=== PATIENT | female | born 1955 | race Caucasian/White ===

== ENCOUNTER 2017-05-21 14:05 | Emergency (ER) | payer OTHER ==
--- NOTE | 2017-05-21 14:32 | UC ---
Throat Pain/Nasal Deuce HPI - HPI Summary HPI Summary: 62 YEAR OLD FEMALE PRESENTS WITH COMPLAINS OF COUGH, CONGESTION, FEVER AND CHILLS X 2 WEEKS. - History of Current Complaint Stated Complaint: COUGH CONGESTION Time Seen by Provider: 05/21/17 14:31 Hx Obtained From: Patient Onset/Duration: Sudden Onset Severity: Moderate Pain Scale Used: 0-10 Numeric - 5 Cough: Nonproductive Associated Signs & Symptoms: Positive: Negative - Allergies/Home Medications Allergies/Adverse Reactions: Allergies Allergy/AdvReac Type Severity Reaction Status Date / Time Soybean Allergy Allergy Severe Anaphylatic Verified 05/21/17 14:27 Shock Iodine Allergy Unknown SEIZURES Verified 05/21/17 14:27 Codeine Allergy ITCHING Verified 05/21/17 14:27 AND VOMITING [place] Allergy Anaphylatic Verified 05/21/17 14:27 Shock Malt AdvReac Severe lock jaw Verified 05/21/17 14:27 NSAIDs AdvReac Severe CAN'T TAKE Verified 05/21/17 14:27 BECAUSE OF KIDNEYS Yeast AdvReac Severe lock jaw Verified 05/21/17 14:27 Ciprofloxacin [From Cipro] AdvReac Unknown See Comment Verified 05/21/17 14:27 black pepper AdvReac Severe sinusitis Uncoded 05/21/17 14:27 dairy AdvReac Severe sinus Uncoded 05/21/17 14:27 infections PMH/Surg Hx/FS Hx/Imm Hx Previously Healthy: Yes - Surgical History Surgical History: Yes Surgery Procedure, Year, and Place: Appendectomy, Jaw surgery 1992, Right Foot surgery 1988 - Family History Known Family History: Positive: Unknown, Hypertension - Social History Alcohol Use: None Substance Use Type: None Smoking Status (MU): Never Smoked Tobacco - Immunization History Most Recent Tetanus Shot: less then 10 yrs. Review of Systems Constitutional: Negative Skin: Negative Eyes: Negative ENT: Sore Throat, Nasal Discharge, Sinus Congestion, Sinus Pain/Tenderness Respiratory: Cough Cardiovascular: Negative Gastrointestinal: Negative Genitourinary: Negative Motor: Negative Neurovascular: Negative Musculoskeletal: Negative Neurological: Negative Psychological: Negative All Other Systems Reviewed And Are Negative: Yes Physical Exam Triage Information Reviewed: Yes Vital Signs Reviewed: Yes Eye Exam: Normal ENT: Positive: Pharyngeal erythema, Nasal congestion, Nasal drainage Dental Exam: Normal Neck exam: Normal Neck: Positive: 1 Respiratory: Positive: Wheezing Cardiovascular Exam: Normal Abdominal Exam: Normal Musculoskeletal Exam: Normal Neurological Exam: Normal Psychological Exam: Normal Skin Exam: Normal Throat Pain/Nasal Course/Dx - Differential Dx/Diagnosis Provider Diagnoses: PHARYNGITIS. ACUTE COUGH. WHEEZING Discharge - Discharge Plan Condition: Stable Disposition: HOME Prescriptions: Azithromyxin JOE (NF) [Z-Joe (Zithromax) 250 mg tabs #6] 2 tab PO .TODAY, THEN 1 DAILY #6 tab LoraTADine TAB(NF) [Claritin 10 MG TAB(NF)] 10 mg PO DAILY #30 tab Promethazine-Dm [Promethazine/Dextromethor 6.25-15 mg/5Ml] 1 syp PO Q8H PRN # 120 ml PRN Reason: Cough Patient Education Materials: Sinusitis (ED) Referrals: Loree Doll MD [Primary Care Provider] -
[2017-05-21 14:35] VITALS: BP 149/83
== END 2017-05-21 15:00 | disposition home or self-care (01) ==
LOC: UCEAST 14:05
DX: J02.9 Acute pharyngitis, unspecified (principal); R05 Cough; R06.2 Wheezing
CPT/HCPCS: 86615; 87798; 99212; G0463

== ENCOUNTER 2017-05-31 12:51 | Emergency (ER) | payer OTHER ==
--- NOTE | 2017-05-31 14:32 | UC ---
Lower Extremity/Ankle HPI - HPI Summary HPI Summary: 62 Y/O female presents with C/O of acute RLE pain that began last night. Today pain is decreased but states still has pain with ambulation. Currently being treated by orthopedics for a meniscus tear in LLE. Surgery was recommended but Ms Shha states has been "waiting it out". She also states history of back pain sciatica. No lower extremity swelling, redness or bruising. Denies numbness, back pain or loss of bowel or bladder control. She states that she takes no medications. No new injury reported. She states is concerned that she may have a "blood clot". Discussed with Ms Shah that she can be sent to ER for evaluation and ultrasound of her legs. is not willing to go to ER. Blood pressure is elevated, discussed with patient and she is to monitor and follow up with her primary care provider. All other medical history reviewed at this visit. - History of Current Complaint Stated Complaint: R KNEE Time Seen by Provider: 05/31/17 13:36 Hx Obtained From: Patient Onset/Duration: Sudden Onset, Lasting Hours Severity Initially: Moderate Severity Currently: Mild Pain Intensity: 0 Pain Scale Used: 0-10 Numeric - No pain unless weight bearing Aggravating Factor(s): Ambulation Alleviating Factor(s): Rest Able to Bear Weight: Yes - Risk Factors Gout Risk Factors: Negative DVT Risk Factors: Negative Septic Arthritis Risk Factor: Negative - Allergies/Home Medications Allergies/Adverse Reactions: Allergies Allergy/AdvReac Type Severity Reaction Status Date / Time Soybean Allergy Allergy Severe Anaphylatic Verified 05/31/17 13:46 Shock Iodine Allergy Unknown SEIZURES Verified 05/31/17 13:46 Codeine Allergy ITCHING Verified 05/31/17 13:46 AND VOMITING [place] Allergy Anaphylatic Verified 05/31/17 13:46 Shock Malt AdvReac Severe lock jaw Verified 05/31/17 13:46 NSAIDs AdvReac Severe CAN'T TAKE Verified 05/31/17 13:46 BECAUSE OF KIDNEYS Yeast AdvReac Severe lock jaw Verified 05/31/17 13:46 Ciprofloxacin [From Cipro] AdvReac Unknown See Comment Verified 05/31/17 13:46 black pepper AdvReac Severe sinusitis Uncoded 05/31/17 13:46 dairy AdvReac Severe sinus Uncoded 05/31/17 13:46 infections PMH/Surg Hx/FS Hx/Imm Hx Previously Healthy: Yes - Surgical History Surgical History: Yes Surgery Procedure, Year, and Place: Appendectomy, Jaw surgery 1992, Right Foot surgery 1988 - Family History Known Family History: Positive: Unknown, Hypertension - Social History Alcohol Use: None Substance Use Type: None Smoking Status (MU): Never Smoked Tobacco - Immunization History Most Recent Influenza Vaccination: never Most Recent Tetanus Shot: less then 10 yrs. Most Recent Pneumonia Vaccination: never Review of Systems Constitutional: Negative Skin: Negative Eyes: Negative ENT: Negative Respiratory: Negative Cardiovascular: Negative Gastrointestinal: Negative Genitourinary: Negative Motor: Negative Neurovascular: Negative Musculoskeletal: Other: - Pain in L knee with ambulation Neurological: Negative Psychological: Negative Is Patient Immunocompromised?: No All Other Systems Reviewed And Are Negative: Yes Physical Exam Triage Information Reviewed: Yes Appearance: Well-Appearing Vital Signs: Initial Vital Signs Temp 98 F 05/31/17 13:46 Pulse 83 05/31/17 13:46 Resp 18 05/31/17 13:46 BP 133/64 05/31/17 13:46 Pulse Ox 100 05/31/17 13:46 Vital Signs Reviewed: Yes Eye Exam: Normal Eyes: Positive: Conjunctiva Clear Neck exam: Normal Neck: Positive: Supple Respiratory Exam: Normal Respiratory: Positive: Lungs clear, Normal breath sounds Cardiovascular Exam: Normal Cardiovascular: Positive: RRR Abdominal Exam: Normal Abdomen Description: Positive: Nontender Bowel Sounds: Positive: Present Musculoskeletal Exam: Normal Musculoskeletal: Positive: Strength Intact Neurological Exam: Normal Neurological: Positive: Alert Psychological Exam: Normal Skin Exam: Normal Lower Extremity Course/Dx - Differential Dx/Diagnosis Differential Diagnosis/HQI/PQRI: Fracture (Closed), Sprain, Strain, Tendonitis Provider Diagnoses: Knee strain Discharge - Discharge Plan Condition: Stable Disposition: HOME Patient Education Materials: Knee Pain (ED) Additional Instructions: Continue to wear knee brace supplied by orthopedic surgeon. Call in AM for follow up appt related to increasing knee pain. May return to urgent care for worsening pain or swelling.
[2017-05-31 14:52] VITALS: BP 148/71
== END 2017-05-31 14:53 | disposition home or self-care (01) ==
LOC: UCEAST 12:51
DX: S86.911A Strain of unspecified muscle(s) and tendon(s) at lower leg level, right leg, initial encounter (principal); Z88.6 Allergy status to analgesic agent; X58.XXXA Exposure to other specified factors, initial encounter; Y92.9 Unspecified place or not applicable
CPT/HCPCS: 99211; G0463

== ENCOUNTER 2017-06-26 16:29 | Emergency (ER) | payer OTHER ==
[2017-06-26 16:58] VITALS: BP 130/61
--- NOTE | 2017-06-26 17:50 | UC ---
Throat Pain/Nasal Deuce HPI - HPI Summary HPI Summary: ONE WEEK OF SINUS PRESSURE AND CONGESTION. PAIN AND SWELLING IN RIGHT UPPER TEETH AND GUMS. NO FEVER. - History of Current Complaint Chief Complaint: UCGeneralIllness Stated Complaint: SINUS PAIN Time Seen by Provider: 06/26/17 17:00 Hx Obtained From: Patient Onset/Duration: Gradual Onset, Lasting Weeks, Worse Since - YESTERDAY Severity: Moderate Associated Signs & Symptoms: Positive: Hoarseness, Sinus Discomfort, Nasal Discharge - Epiglottits Risk Factors Epiglottis Risk Factors: Negative - Allergies/Home Medications Allergies/Adverse Reactions: Allergies Allergy/AdvReac Type Severity Reaction Status Date / Time Soybean Allergy Allergy Severe Anaphylatic Verified 06/26/17 16:48 Shock Iodine Allergy Unknown SEIZURES Verified 06/26/17 16:48 Codeine Allergy ITCHING Verified 06/26/17 16:48 AND VOMITING [place] Allergy Anaphylatic Verified 06/26/17 16:48 Shock Malt AdvReac Severe lock jaw Verified 06/26/17 16:48 NSAIDs AdvReac Severe CAN'T TAKE Verified 06/26/17 16:48 BECAUSE OF KIDNEYS Yeast AdvReac Severe lock jaw Verified 06/26/17 16:48 Ciprofloxacin [From Cipro] AdvReac Unknown See Comment Verified 06/26/17 16:48 black pepper AdvReac Severe sinusitis Uncoded 06/26/17 16:48 dairy AdvReac Severe sinus Uncoded 06/26/17 16:48 infections PMH/Surg Hx/FS Hx/Imm Hx Previously Healthy: Yes - Surgical History Surgical History: Yes Surgery Procedure, Year, and Place: Appendectomy, Jaw surgery 1992, Right Foot surgery 1988 - Family History Known Family History: Positive: Unknown, Hypertension - Social History Occupation: Retired Lives: With Family Alcohol Use: None Substance Use Type: None Smoking Status (MU): Never Smoked Tobacco - Immunization History Most Recent Influenza Vaccination: never Most Recent Tetanus Shot: less then 10 yrs. Most Recent Pneumonia Vaccination: never Review of Systems Constitutional: Negative Skin: Negative Eyes: Negative ENT: Dental Pain, Nasal Discharge, Sinus Congestion, Sinus Pain/Tenderness Respiratory: Negative Cardiovascular: Negative Gastrointestinal: Negative Genitourinary: Negative Motor: Negative Neurovascular: Negative Musculoskeletal: Negative Neurological: Negative Psychological: Negative Is Patient Immunocompromised?: No All Other Systems Reviewed And Are Negative: Yes Physical Exam Triage Information Reviewed: Yes Appearance: Well-Appearing, Well-Nourished, Pain Distress - MILD Vital Signs: Initial Vital Signs Temp 97.7 F 06/26/17 16:48 Pulse 81 06/26/17 16:48 Resp 16 06/26/17 16:48 BP 130/61 06/26/17 16:48 Pulse Ox 100 06/26/17 16:48 Vital Signs Reviewed: Yes Eye Exam: Normal ENT: Positive: Nasal congestion, TM bulging, TM dull, Other: - BILATERAL TURBINATES BOGGY Dental Exam: Normal Neck exam: Normal Neck: Positive: Supple, Nontender, No Lymphadenopathy Respiratory Exam: Normal Respiratory: Positive: Chest non-tender, Lungs clear, Normal breath sounds, No respiratory distress, No accessory muscle use Cardiovascular Exam: Normal Cardiovascular: Positive: RRR, No Murmur, Pulses Normal Abdominal Exam: Normal Musculoskeletal Exam: Normal Musculoskeletal: Positive: Strength Intact, ROM Intact Neurological Exam: Normal Psychological Exam: Normal Skin Exam: Normal Throat Pain/Nasal Course/Dx - Differential Dx/Diagnosis Differential Diagnosis/HQI/PQRI: Pharyngitis, Sinusitis, Tonsillitis, URI Provider Diagnoses: SINUSITIS; DENTAL PAIN (#7,8,9,10) Discharge - Discharge Plan Condition: Stable Disposition: HOME Prescriptions: Amoxicillin/Clavulanate TAB* [Augmentin TAB 875*] 875 mg PO BID #20 tab Patient Education Materials: Sinusitis (ED), Toothache (ED) Referrals: Loree Doll MD [Primary Care Provider] - [facility]: 1 - PAIN HERE
== END 2017-06-26 17:55 | disposition home or self-care (01) ==
LOC: UCEAST 16:29
DX: J01.90 Acute sinusitis, unspecified (principal); K08.89 Other specified disorders of teeth and supporting structures
CPT/HCPCS: 99212; G0463

== ENCOUNTER 2017-11-02 12:34 | Emergency (ER) | payer OTHER ==
[2017-11-02 12:47] VITALS: BP 105/78
--- NOTE | 2017-11-02 13:44 | UC ---
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 She states that for the past two days she has had increased frequency/urgency of urination no dysuria she feels a little puffy around her eyes and desires to make sure she is not spilling protein FollowDr Nelsyyvette for her nephrology issues Has MS States she has had LBP x mosnths with right sided sciatica taking no meds no incontence - History of Current Complaint Chief Complaint: UCBackPain Stated Complaint: LOWER BACK PAIN URINARY ISSUE Time Seen by Provider: 11/02/17 13:06 Hx Obtained From: Patient Onset/Duration: Gradual Onset, Lasting Days Timing: Constant Severity Initially: Moderate Severity Currently: Moderate Pain Intensity: 6 - back pain Pain Scale Used: 0-10 Numeric Location: Other - lower back ->radiates down right leg to knee Character: Aching Aggravating Factor(s): Movement Alleviating Factor(s): Nothing Associated Signs and Symptoms: Positive: Urinary Symptoms - increased frequency only. Negative: Fever, Cough, Chest Pain, Dizzy, Back Pain, Constipation, Blood in Stool, Decreased Appetite, Vaginal Bleeding, Vaginal Discharge, Nausea , Vomiting, Diarrhea Allergies/Adverse Reactions: Allergies Allergy/AdvReac Type Severity Reaction Status Date / Time ciprofloxacin [From Cipro] Allergy Severe Muscle Ache Verified 11/02/17 12:47 Iodinated Contrast- Oral and Allergy Severe Anaphylatic Verified 11/02/17 12:47 IV Dye Shock soybean Allergy Severe Anaphylatic Verified 11/02/17 12:47 Shock strawberry Allergy Severe Anaphylatic Verified 11/02/17 12:47 Shock codeine Allergy Intermediate Itching Verified 11/02/17 12:47 NSAIDS (Non-Steroidal AdvReac Severe See Comment Verified 11/02/17 12:47 Anti-Inflamma Yeast AdvReac Severe See Comment Verified 11/02/17 12:47 black pepper AdvReac Severe sinusitis Uncoded 11/02/17 12:47 dairy AdvReac Severe sinus Uncoded 11/02/17 12:47 infections malt AdvReac Severe See Comment Uncoded 11/02/17 12:47 Home Medications: Home Medications NK [No Home Medications Reported] 11/02/17 [History Confirmed 11/02/17] PMH/Surg Hx/FS Hx/Imm Hx Previously Healthy: Yes GI/ History: Renal Disease - IgA nephropathy Other Neurological History: MS - Surgical History Surgical History: Yes Surgery Procedure, Year, and Place: Appendectomy, Jaw/TMJ - surgery 1992, Right Foot surgery 1988 - Family History Known Family History: Positive: Unknown, Hypertension - Social History Alcohol Use: None Substance Use Type: None Smoking Status (MU): Never Smoked Tobacco - Immunization History Most Recent Influenza Vaccination: never Most Recent Tetanus Shot: less then 10 yrs. Most Recent Pneumonia Vaccination: never Review of Systems Constitutional: Negative Skin: Negative Eyes: Negative ENT: Negative Respiratory: Negative Cardiovascular: Negative Gastrointestinal: Negative Genitourinary: Frequency, Urgency Motor: Negative Neurovascular: Negative Musculoskeletal: Myalgia Neurological: Negative Psychological: Negative Is Patient Immunocompromised?: No All Other Systems Reviewed And Are Negative: Yes Physical Exam Triage Information Reviewed: Yes Appearance: Well-Appearing, No Pain Distress, Well-Nourished Vital Signs: Initial Vital Signs Temp 97.5 F 11/02/17 12:43 Pulse 60 11/02/17 12:43 Resp 16 11/02/17 12:43 BP 105/78 11/02/17 12:43 Pulse Ox 96 11/02/17 12:43 Vital Signs Reviewed: Yes Eyes: Positive: Conjunctiva Clear, Other: - no periorbital edema note by me ENT: Positive: Hearing grossly normal, Uvula midline. Negative: Nasal congestion, Nasal drainage, Trismus, Muffled voice, Hoarse voice, Dental tenderness, Sinus tenderness Neck: Positive: Supple, Nontender, No Lymphadenopathy Respiratory: Positive: Lungs clear, Normal breath sounds, No respiratory distress, No accessory muscle use Cardiovascular: Positive: RRR Abdomen Description: Positive: Nontender, No Organomegaly, Soft. Negative: CVA Tenderness (R), CVA Tenderness (L), Guarding Musculoskeletal: Positive: ROM Intact, No Edema, Other: - Neg SLR Neurological Exam: Other - decreased R knee DTR which she states is chronic Neurological: Positive: Other: - normal gait Psychological Exam: Normal Skin Exam: Normal Abd Pain Female Course/Dx - Differential Dx/Diagnosis Provider Diagnoses: increased frequech of urination of uncertain cause Discharge - Discharge Plan Condition: Stable Disposition: HOME Referrals: Yinka Orozco, [employer] [Primary Care Provider] - As Soon As Possible Additional Instructions: I am unsure what is causing your increased frequency of urination As discussed you are spilling no protein in your urine We will check a urine culture Blood work is pending to assess your renal function You may need imaging to evaluate your back pain and right sided sciatica Call you neurologist to see if your MS could be causing your symptoms IF symptoms worsen before you can see your provider please go to the ER
[2017-11-02 16:42] LABS: EGFR Non-African American 66.6 (>60)
--- NOTE | 2017-11-04 11:02 | ED ---
Progress - Progress Note Progress Note: urine cx neg no change [place] 11/04/2017
== END 2017-11-02 13:45 | disposition home or self-care (01) ==
LOC: UCEAST 12:34
DX: R35.0 Frequency of micturition (principal); N02.8 Recurrent and persistent hematuria with other morphologic changes; N18.2 Chronic kidney disease, stage 2 (mild); G35 Multiple sclerosis; Z88.5 Allergy status to narcotic agent; Z88.6 Allergy status to analgesic agent; Z88.1 Allergy status to other antibiotic agents; Z91.041 Radiographic dye allergy status
CPT/HCPCS: 36415; 80048; 81003; 87086; 99211; G0463

== ENCOUNTER 2017-12-23 13:05 | Emergency (ER) | payer OTHER ==
--- NOTE | 2017-12-23 15:12 | RAD ---
INDICATION: Chest pain. Short of breath COMPARISON: 1457 hours TECHNIQUE: An AP portable view obtained at December 27, 2014 is submitted. FINDINGS: Bones/Soft Tissues: There are no acute bony findings. Cardiomediastinal: The cardiomediastinal silhouette is normal. Lungs: There are no infiltrates. Pleura: There are no pleural effusions. Other: None IMPRESSION: NO ACTIVE DISEASE.
[2017-12-23 15:50] LABS: ABS Basophils 0 10^3/ul (0-0.2); ABS Eosinophils 0.1 10^3/ul (0-0.6); ABS Lymphocytes 1.4 10^3/ul (1.0-4.8); ABS Monocytes 0.5 10^3/ul (0-0.8); ABS Neutrophils 2.3 10^3/ul (1.5-7.7); ABS Nucleated RBC 0 10^3/ul; Eosinophil % 2.5 % (0-6); Hematocrit 44 % (35-47); Hemoglobin 14.8 g/dl (12.0-16.0); Lymphocyte % 32.3 % (25-47); Mean Corpuscular HGB Conc 34 g/dl (31-36); Mean Corpuscular Hemoglobin 30 pg (27-31); Mean Corpuscular Volume 88 fL (80-97); Mean Platelet Volume 8.2 um3 (7.4-10.4); Nucleated Red Blood Cells % 0.1; Platelet Count 160 10^3/ul (150-450); Red Blood Count 4.99 10^6/ul (4.0-5.4); Red Cell Distribution Width 14 % (10.5-15); White Blood Count 4.4 10^3/ul (3.5-10.8)
[2017-12-23 15:56] LABS: INR 1.12 (0.77-1.02)
[2017-12-23 16:10] LABS: EGFR Non-African American 65.8 (>60)
[2017-12-23 16:45] VITALS: BP 131/79
--- NOTE | 2017-12-23 20:00 | ED ---
Yolanda Gusman Gabriel, scribed for Layo Lo MD on 12/23/17 at 1419 . HPI Chest Pain - HPI Summary HPI Summary: This patient is a 62 year old F presenting to [facility] with a chief complaint of CP that began 12-18-17. Pt states she was taking out the garbage when she began having irregular palpitations, dizziness, and shortness of breath. She called Dr. 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 Since then she has had severe KRAMER. The patient rates the pain 6/10 in severity. Symptoms aggravated by exertion. Patient reports fatigue, dizziness, SOB, ABD pain, and KRAMER. She also developed a recent cold that began 2 days ago. Pt has had irregular palpitations for the last ten years, this is never accompanied by other symptoms. No hx of DM, HLD, HTN, and is a non-smoker. Last stress test was 2 years ago. - History of Current Complaint Chief Complaint: EDChestPainROMI Time Seen by Provider: 12/23/17 14:04 Hx Obtained From: Patient Onset/Duration: Started Hours Ago, Still Present Timing: Constant Initial Severity: Moderate Current Severity: Moderate Pain Intensity: 6 Pain Scale Used: 0-10 Numeric Chest Pain Location: Diffuse Chest Pain Radiates: No Aggravating Factor(s): Exertion Associated Signs and Symptoms: Positive: Chest Pain, Other: - fatigue, dizziness , SOB, epigastria pain, and KRAMER - Allergy/Home Medications Allergies/Adverse Reactions: Allergies Allergy/AdvReac Type Severity Reaction Status Date / Time ciprofloxacin [From Cipro] Allergy Severe Muscle Ache Verified 11/02/17 12:47 Iodinated Contrast- Oral and Allergy Severe Anaphylatic Verified 11/02/17 12:47 IV Dye Shock soybean Allergy Severe Anaphylatic Verified 11/02/17 12:47 Shock strawberry Allergy Severe Anaphylatic Verified 11/02/17 12:47 Shock codeine Allergy Intermediate Itching Verified 11/02/17 12:47 NSAIDS (Non-Steroidal AdvReac Severe See Comment Verified 11/02/17 12:47 Anti-Inflamma Yeast AdvReac Severe See Comment Verified 11/02/17 12:47 black pepper AdvReac Severe sinusitis Uncoded 11/02/17 12:47 dairy AdvReac Severe sinus Uncoded 11/02/17 12:47 infections malt AdvReac Severe See Comment Uncoded 11/02/17 12:47 PMH/Surg Hx/FS Hx/Imm Hx Endocrine/Hematology History: Denies: Hx Diabetes, Hx Thyroid Disease Cardiovascular History: Denies: Hx Hypertension, Hx Pacemaker/ICD Respiratory History: Reports: Other Respiratory Problems/Disorders - PARTIALLY COLLASPED LUNG 2 MONTHS AGO Denies: Hx Asthma, Hx Chronic Obstructive Pulmonary Disease (COPD) GI History: Denies: Hx Ulcer History: Reports: Hx Renal Disease - IGA KIDNEY DISORDER Denies: Hx Dialysis Musculoskeletal History: Denies: Hx Joint Replacement Sensory History: Denies: Hx Hearing Aid Neurological History: Denies: Hx Dementia, Hx Developmental Delay Psychiatric History: Denies: Hx Panic Disorder - Surgical History Surgery Procedure, Year, and Place: Appendectomy, Jaw/TMJ - surgery 1992, Right Foot surgery 1988 - Immunization History Date of Tetanus Vaccine: unk Infectious Disease History: No Infectious Disease History: Denies: Hx Clostridium Difficile, Hx Hepatitis, Hx Human Immunodeficiency Virus (HIV), Hx of Known/Suspected MRSA, Hx Shingles, Hx Tuberculosis, Hx Known/ Suspected VRE, Hx Known/Suspected VRSA, History Other Infectious Disease, Traveled Outside the [place] in Last 30 Days - Family History Known Family History: Positive: Hypertension Negative: Respiratory Disease, Seizure Disorder - Social History Lives: Alone Alcohol Use: None Substance Use Type: Reports: None Hx Tobacco Use: No Smoking Status (MU): Never Smoked Tobacco Review of Systems Positive: Fatigue Positive: Palpitations - irregular , Chest Pain Positive: Shortness Of Breath, Other - KRAMER Positive: Abdominal Pain Neurological: Other - dizziness All Other Systems Reviewed And Are Negative: Yes Physical Exam - Summary Physical Exam Summary: General: well-appearing, no pain distress Skin: warm, color reflects adequate perfusion, dry Head: normal Eyes: EOMI, ARAM ENT: normal Neck: supple, nontender Respiratory: CTA, breath sounds present Cardiovascular: RRR Abdomen: lower ABD is mildly TTP, no reboud Bowel: present Musculoskeletal: normal, strength/ROM intact Neurological: normal, sensory/motor intact, A&O x3 Psychological: affect/mood appropriate Triage Information Reviewed: Yes Vital Signs On Initial Exam: Initial Vitals Temp Pulse Resp BP Pulse Ox 97.8 F 94 20 125/109 96 12/23/17 13:07 12/23/17 13:07 12/23/17 13:07 12/23/17 13:07 12/23/17 13:07 Vital Signs Reviewed: Yes Diagnostics - Vital Signs Vital Signs Temp Pulse Resp BP Pulse Ox 12/23/17 14:04 81 18 98 12/23/17 13:07 97.8 F 94 20 125/109 96 - Laboratory Lab Results: Lab Results 12/23/17 12/23/17 12/23/17 Range/Units 15:18 15:18 15:18 WBC 4.4 (3.5-10.8) 10^3/ul RBC 4.99 (4.0-5.4) 10^6/ul Hgb 14.8 (12.0-16.0) g/dl Hct 44 (35-47) % MCV 88 (80-97) fL MCH 30 (27-31) pg MCHC 34 (31-36) g/dl RDW 14 (10.5-15) % Plt Count 160 (150-450) 10^3/ul MPV 8.2 (7.4-10.4) um3 Neut % (Auto) 52.8 (38-83) % Lymph % (Auto) 32.3 (25-47) % Allen % (Auto) 11.3 H (0-7) % Eos % (Auto) 2.5 (0-6) % Baso % (Auto) 1.1 (0-2) % Absolute Neuts (auto) 2.3 (1.5-7.7) 10^3/ul Absolute Lymphs (auto) 1.4 (1.0-4.8) 10^3/ul Absolute Monos (auto) 0.5 (0-0.8) 10^3/ul Absolute Eos (auto) 0.1 (0-0.6) 10^3/ul Absolute Basos (auto) 0 (0-0.2) 10^3/ul Absolute Nucleated RBC 0 10^3/ul Nucleated RBC % 0.1 INR (Anticoag Therapy) 1.12 H (0.77-1.02) APTT 30.3 (26.0-36.3) seconds D-Dimer, Quantitative < 200 (Less Than 230) ng/mL Sodium (139-145) mmol/L Potassium (3.5-5.0) mmol/L Chloride (101-111) mmol/L Carbon Dioxide (22-32) mmol/L Anion Gap (2-11) mmol/L BUN (6-24) mg/dL Creatinine (0.51-0.95) mg/dL Est GFR ( Amer) (>60) Est GFR (Non-Af Amer) (>60) BUN/Creatinine Ratio (8-20) Glucose (70-100) mg/dL Lactic Acid (0.5-2.0) mmol/L Calcium (8.6-10.3) mg/dL Magnesium (1.9-2.7) mg/dL Total Bilirubin (0.2-1.0) mg/dL AST (13-39) U/L ALT (7-52) U/L Alkaline Phosphatase (34-104) U/L Total Creatine Kinase (10-223) U/L CK-MB (CK-2) (0.6-6.3) ng/mL Troponin I (<0.04) ng/mL C-Reactive Protein (< 5.00) mg/L B-Natriuretic Peptide 22 ( - 100) pg/mL Total Protein (6.4-8.9) g/dL Albumin (3.2-5.2) g/dL Globulin (2-4) g/dL Albumin/Globulin Ratio (1-3) Lipase (11.0-82.0) U/L TSH (0.34-5.60) mcIU/mL 18 12/23/17 Range/Units 15:18 15:18 WBC (3.5-10.8) 10^3/ul RBC (4.0-5.4) 10^6/ul Hgb (12.0-16.0) g/dl Hct (35-47) % MCV (80-97) fL MCH (27-31) pg MCHC (31-36) g/dl RDW (10.5-15) % Plt Count (150-450) 10^3/ul MPV (7.4-10.4) um3 Neut % (Auto) (38-83) % Lymph % (Auto) (25-47) % Allen % (Auto) (0-7) % Eos % (Auto) (0-6) % Baso % (Auto) (0-2) % Absolute Neuts (auto) (1.5-7.7) 10^3/ul Absolute Lymphs (auto) (1.0-4.8) 10^3/ul Absolute Monos (auto) (0-0.8) 10^3/ul Absolute Eos (auto) (0-0.6) 10^3/ul Absolute Basos (auto) (0-0.2) 10^3/ul Absolute Nucleated RBC 10^3/ul Nucleated RBC % INR (Anticoag Therapy) (0.77-1.02) APTT (26.0-36.3) seconds D-Dimer, Quantitative (Less Than 230) ng/mL Sodium 140 (139-145) mmol/L Potassium 3.8 (3.5-5.0) mmol/L Chloride 105 (101-111) mmol/L Carbon Dioxide 25 (22-32) mmol/L Anion Gap 10 (2-11) mmol/L BUN 17 (6-24) mg/dL Creatinine 0.87 (0.51-0.95) mg/dL Est GFR ( Amer) 84.6 (>60) Est GFR (Non-Af Amer) 65.8 (>60) BUN/Creatinine Ratio 19.5 (8-20) Glucose 94 (70-100) mg/dL Lactic Acid 1.2 (0.5-2.0) mmol/L Calcium 9.1 (8.6-10.3) mg/dL Magnesium 2.2 (1.9-2.7) mg/dL Total Bilirubin 0.40 (0.2-1.0) mg/dL AST 15 (13-39) U/L ALT 12 (7-52) U/L Alkaline Phosphatase 65 (34-104) U/L Total Creatine Kinase 53 (10-223) U/L CK-MB (CK-2) 1.0 (0.6-6.3) ng/mL Troponin I 0.00 (<0.04) ng/mL C-Reactive Protein 31.15 H (< 5.00) mg/L B-Natriuretic Peptide ( - 100) pg/mL Total Protein 7.0 (6.4-8.9) g/dL Albumin 4.2 (3.2-5.2) g/dL Globulin 2.8 (2-4) g/dL Albumin/Globulin Ratio 1.5 (1-3) Lipase 28 (11.0-82.0) U/L TSH 1.20 (0.34-5.60) mcIU/mL Result Diagrams: 12/23/17 15:18 12/23/17 15:18 Lab Statement: Any lab studies that have been ordered have been reviewed, and results considered in the medical decision making process. - Radiology CXR Radiology Interpretation Completed By: Radiologist - no active disease ED physician has reviewed this radiology report. - EKG 13:09 Cardiac Rate: NL EKG Rhythm: Sinus Rhythm - at [address] Segment: Normal Ectopy: None Re-Evaluation - Re-Evaluation First Eval Re-Evaluation Time: 16:54 Change: Unchanged Comment: I discussed all test results with the patient. I recommended she stay for admission but she declined . Chest Pain Course/Dx - Course Course Of Treatment: DISCUSSED RESULTS WITH THE PATIENT. I RECOMMENDED ADMISSION; THE PATIENT DECLINED ADMISSION AND FURTHER ED TESTING. SHE WILL F/U WITH CARDIOLOGY OUT PATIENT; RETURN TO ED IF WORSE. - Diagnoses Provider Diagnoses: Chest pain, SOB (shortness of breath) Discharge - Sign-Out/Discharge Documenting (check all that apply): Discharge - Discharge Plan Condition: Stable Disposition: HOME Patient Education Materials: Chest Pain (ED), Shortness of Breath (ED) Referrals: Yinka Orozco NP [Primary Care Provider] - Additional Instructions: Follow up with your wind turbine engineer as soon as possible RETURN TO THE EMERGENCY DEPARTMENT FOR CHANGING OR WORSENING SYMPTOMS - Billing Disposition and Condition Condition: STABLE Disposition: HOME The documentation as recorded by the Yolanda alejandro Gabriel accurately reflects the service I personally performed and the decisions made by me, Layo Lo MD.
== END 2017-12-23 17:06 | disposition home or self-care (01) ==
LOC: ED 13:05
DX: R07.9 Chest pain, unspecified (principal); R06.02 Shortness of breath; R53.83 Other fatigue; R42 Dizziness and giddiness; R00.2 Palpitations; R10.9 Unspecified abdominal pain
CPT/HCPCS: 36415; 71045; 80053; 82550; 82553; 83605; 83690; 83735; 83880; 84443; 84484; 85025; 85379; 85610; 85730; 86140; 93005; 99282

== ENCOUNTER 2018-01-19 16:59 | Emergency (ER) | payer OTHER ==
--- OUTSIDE RECORDS SUMMARY | 2018-01-19 17:07 | XMS REPORT ---
:1955 External Reference #:[id number] Author Organization [facility] Address [address] [address] Phone [phone] Care Team Providers Name Role Phone Loree Doll MD Primary Care Physician Unavailable Payers Type Date Identification Numbers Payment Provider Subscriber Commercial Effective: Policy Number: [id number] [employer] Cindy Shah 2009 Medicaid PayID: [id number] [address] [address] [place] [address] Medigap Part B Effective: Policy Number: BS Facets Cindy Shah 2012 [id number] Expires: 2013 PayID: [id number] [address] [address] [place] [address] Commercial Expires: 2012 Policy Number: [employer] Cindy Birmingham [id number] Essential Pablo PayID: [id number] [address] [address] [place] [address] Problems Date Description Provider Status Onset: 05/22/2011 Pure hypercholesterolemia Callie Perry, N.P. Active Onset: 05/22/2011 Goiter Callie Perry, N.P. Active Onset: 05/22/2015 Chest pain Valerio Vera M.D., [facility], Active FASNC Onset: 05/22/2015 Palpitations Valerio Vera M.D., [facility], Active FASNC Onset: 06/05/2017 Sciatica Isa Casanova M.D. Active Family History Date Family Member(s) Problem(s) Comments General Heart Disease General Cancer General Thyroid Disease : (age 62 Father due to Cancer, Heart Disase, [place] (60) Years) Colon Father Colon Cancer age 62 Father [place] : (age 64 Mother due to Cancer, Heart Disease, [place] (30's) Years) Lung Mother Lung Cancer 'and bone' , smoker, age 64 Mother Uterine Cancer First Son Adopted Siblings 6 4 Brothers, 2 Sisters 1 Sister with thyroid cancer and hypothyroidism 1 sister with jesus's thyroiditis, 1 brother with mariposa, 1 brother age 59 of [place], 1 brother stroke and HTN in 70s (States all males have HTN, two brothers diabetes, 4 brothers heart disease) Multiple sclerosis in maternal aunt and two nieces. Social History Type Date Description Comments Marital Status Lives With Alone Occupation [employer] Occupation Retired Cigarette Use Former Cigarette Smoker 1/2 Pt denies ever smoking Pack Daily cigar, pipe, e-cigarettes, or using chewing tobacco. ETOH Use Denies alcohol use Smoking Patient is a former smoker as teenager, sporadic Recreational Drug Use Denies Drug Use Daily Caffeine Does Not Consume Caffeine Pt drinks Camomile Tea x1 daily Exercise Type/Frequency Exercises regularly 3 - 4 days per week Allergies, Adverse Reactions, Alerts Date Description Reaction Status Severity Comments 10/26/2009 Codeine itch active Moderate and vomit 10/26/2009 Cipro heart muscle active Severe 10/26/2009 Iodine seizures active contrast 08/23/2013 Augmentin muscle spasms in active Moderate to legs Severe 10/04/2013 Soybean-containing Anaphylaxis, active Severe Drug Products Nausea and Vomiting 05/22/2015 Perfumes active 05/22/2015 Yeast active 05/22/2015 Malt active 05/22/2015 Dairy active 05/22/2015 Black Pepper active 05/22/2015 Strawberries active 08/04/2016 NSAIDs active Kidney damage from NSAIDs in the past. Medications Medication Date Status Form Strength Qnty SIG Indications Ordering Provider Doxycycline 01/01/ Active Tablets 100mg 20tabs 1 po bid Callie Monohydrate 2018 x 10 days Varn, N.P. Catnip / Active Powder daily Unknown 0000 Doxycycline 12/31/ Hx Capsules 100mg 20caps one R05 Yinka Hyclate 2018 - tablet JENNIFFER Orozco 01/01/ twice 2018 daily for 10 days. Doxycycline 08/25/ Hx Capsules 100mg 20caps one Yinka Hyclate 2016 - tablet JENNIFFER Orozco 09/04/ twice 2016 daily for 10 days. Voltaren 06/01/ Hx Gel 1% 300gm apply 4 Yinka 2016 - grams of JENNIFFER Orozco 06/21/ gel twice 2016 daily to the affected areas for 7 days. Voltaren 01/07/ Hx Gel 1% 300gm apply 4 M25.561 Yinka 2016 - grams of JENNIFFER Orozco 08/28/ gel twice 2016 daily to the affected areas for 7 days. Doxycycline 11/29/ Hx Tablets 100mg 20tabs 1 po bid 461.9 Callie Hyclate 2013 - x 10 days Varn, 12/09/ N.P. 2013 Fluconazole 11/29/ Hx Tablets 150mg 2tabs one by 461.9 Callie 2013 - mouth january Varn, 12/13/ repeat in N.P. 2013 3 days as needed Fluconazole 11/24/ Hx Tablets 150mg 2tabs one by Callie 2013 - mouth january Varn, 11/29/ repeat in N.P. 2013 3 days as needed Azithromycin 11/21/ Hx Tablets 250mg 6tabs two tabs 461.9 Callie 2013 - day one, Varn, 11/29/ one daily N.P. 2013 until gone No Active Unknown Medications 2012 - 2013 Amoxicillin/Clavu 05/09/ Hx Tablets 875-125mg 20tabs one Nery lanate Potassium 2011 - tablet by Kyle 08/23/ mouth M.D. 2012 twice daily for 10 days Cyclobenzaprine 06/11/ Hx Tablets 5mg 30tabs 1 by 723.1 Pallavi HCL 2010 - mouth at Tasha, 10/29/ bedtime M.D., 2011 as needed FACP for back pain Physical Therapy 07/31/ Hx Orthoses Pallavi 2009 - Tasha, 12/30/ M.D., 2010 FACP Nasacort Aq / Hx Aerosol 55mcg/Act 1units use 1 Pallavi 0000 - spray ea Tasha, 07/31/ nostril M.D., 2009 daily as FACP needed Valerian Root / Hx Powder 1/2 tsp Unknown 0000 - in water 04/26/ nightly 2018 Milk Thistle / Hx Capsules 1 cap po Unknown Extract 0000 - daily 2014 Vitamin D3 / Hx Capsules 2000Unit 1 by Unknown 0000 - mouth day 2015 [place] And / Hx Once Unknown Nettle Tea 0000 - Daily 2015 Arnica / Hx Unknown 0000 - 2017 Medications Administered in Office Medication Date Status Form Strength Qnty SIG Indications Ordering Provider Technetium TC Administered Injection Valerio Garrison [id number] Reji Vera M.D., [facility], Per Unit Dose FASNC Up To 40 Millicuries Immunizations CPT Code Status Date Vaccine Lot # [id number] Given 04/17/2010 Tdap - Tetanus/Diptheria/Acellular Pertussis Vital Signs Date Vital Result Comment 01/08/2018 Height 67 inches 5'7" Weight 190.00 lb Heart Rate 74 /min BP Systolic 110 mmHg BP Diastolic 70 mmHg Respiratory Rate 16 /min BMI (Body Mass Index) 29.8 kg/m2 12/31/2017 Weight 193.75 lb Heart Rate 69 /min BP Systolic 116 mmHg BP Diastolic 75 mmHg Body Temperature 97.3 F O2 % BldC Oximetry 99 % 10/02/2017 Height 67 inches 5'7" Weight 190.00 lb Heart Rate 72 /min BP Systolic Sitting 130 mmHg BP Diastolic Sitting 76 mmHg Respiratory Rate 18 /min BMI (Body Mass Index) 29.8 kg/m2 08/06/2017 Height 67 inches 5'7" Weight 182.00 lb Heart Rate 83 /min BP Systolic 120 mmHg BP Diastolic 66 mmHg Body Temperature 97.3 F O2 % BldC Oximetry 98 % BMI (Body Mass Index) 28.5 kg/m2 07/29/2017 Height 67 inches 5'7" Weight 184.00 lb Heart Rate 72 /min BP Systolic Sitting 116 mmHg BP Diastolic Sitting 62 mmHg Body Temperature 97.6 F O2 % BldC Oximetry 97 % BMI (Body Mass Index) 28.8 kg/m2 06/22/2017 Height 67 inches 5'7" Weight 182.00 lb Heart Rate 68 /min BP Systolic 111 mmHg BP Diastolic 62 mmHg BMI (Body Mass Index) 28.5 kg/m2 06/05/2017 Height 66.5 inches 5'6.50" Weight 192.00 lb BP Systolic 128 mmHg BP Diastolic 76 mmHg Respiratory Rate 20 /min Pain Level 7 BMI (Body Mass Index) 30.5 kg/m2 04/27/2017 Height 66.5 inches 5'6.50" Weight 192.00 lb Heart Rate 68 /min BP Systolic 118 mmHg BP Diastolic 70 mmHg Respiratory Rate 15 /min Body Temperature 97.5 F Pain Level 4 BMI (Body Mass Index) 30.5 kg/m2 03/16/2017 Height 66.5 inches 5'6.50" Weight 192.00 lb Heart Rate 86 /min Respiratory Rate 16 /min Pain Level 2 BMI (Body Mass Index) 30.5 kg/m2 02/26/2017 Height 66.5 inches 5'6.50" Weight 192.00 lb BP Systolic 111 mmHg BP Diastolic 65 mmHg Respiratory Rate 15 /min Pain Level 6 BMI (Body Mass Index) 30.5 kg/m2 01/07/2017 Weight 195.50 lb Heart Rate 81 /min BP Systolic 138 mmHg BP Diastolic 64 mmHg Body Temperature 97.5 F O2 % BldC Oximetry 95 % 08/04/2016 Height 66 inches 5'6" Weight 197.00 lb Heart Rate 77 /min BP Systolic 118 mmHg BP Diastolic 68 mmHg Body Temperature 97.5 F O2 % BldC Oximetry 97 % BMI (Body Mass Index) 31.8 kg/m2 07/04/2015 Height 66.25 inches 5'6.25" Weight 198.00 lb w/o shoes Heart Rate 74 /min reg BP Systolic Sitting 110 mmHg Rue, reg cuff BP Diastolic Sitting 74 mmHg Rue, reg cuff BP Systolic Standing 114 mmHg Rue BP Diastolic Standing 76 mmHg Rue Respiratory Rate 18 /min BMI (Body Mass Index) 31.7 kg/m2 Ejection Fraction 60-65% as of 05/10/15 echo 05/22/2015 Height 66.25 inches 5'6.25" Weight 193.50 lb w/o shoes Heart Rate 70 /min BP Systolic 124 mmHg Rue, reg cuff BP Diastolic 82 mmHg Rue, reg cuff BP Systolic Sitting 122 mmHg Lue, reg cuff BP Diastolic Sitting 76 mmHg Lue, reg cuff BP Systolic Standing 120 mmHg Lue BP Diastolic Standing 80 mmHg Lue Respiratory Rate 18 /min BMI (Body Mass Index) 31.0 kg/m2 12/25/2014 Height 67 inches 5'7" Weight 195.00 lb Heart Rate 71 /min BP Systolic 140 mmHg BP Diastolic 84 mmHg BMI (Body Mass Index) 30.5 kg/m2 07/19/2014 Height 67 inches 5'7" Weight 195.00 lb Heart Rate 75 /min BMI (Body Mass Index) 30.5 kg/m2 06/15/2014 Height 67 inches 5'7" Weight 195.00 lb Heart Rate 75 /min BP Systolic 120 mmHg BP Diastolic 76 mmHg BMI (Body Mass Index) 30.5 kg/m2 01/17/2014 Height 67 inches 5'7" Weight 193.00 lb Heart Rate 76 /min BP Systolic Sitting 112 mmHg BP Diastolic Sitting 66 mmHg Respiratory Rate 16 /min BMI (Body Mass Index) 30.2 kg/m2 12/20/2013 Height 67 inches 5'7" Weight 195.00 lb Heart Rate 64 /min BP Systolic Sitting 108 mmHg BP Diastolic Sitting 64 mmHg Respiratory Rate 16 /min BMI (Body Mass Index) 30.5 kg/m2 11/29/2013 Heart Rate 68 /min BP Systolic 126 mmHg BP Diastolic 70 mmHg Respiratory Rate 16 /min Body Temperature 97.9 F 11/21/2013 Weight 196.50 lb Heart Rate 80 /min BP Systolic 126 mmHg BP Diastolic 70 mmHg Respiratory Rate 16 /min Body Temperature 97.7 F 10/04/2013 Weight 202.50 lb Heart Rate 64 /min BP Systolic 122 mmHg BP Diastolic 68 mmHg 08/23/2013 Weight 199.50 lb Heart Rate 76 /min BP Systolic Sitting 118 mmHg BP Diastolic Sitting 68 mmHg 09/06/2012 Weight 197.00 lb Heart Rate 78 /min BP Systolic Sitting 124 mmHg BP Diastolic Sitting 70 mmHg 05/07/2012 Height 67 inches 5'7" Weight 199.00 lb Heart Rate 76 /min BP Systolic Sitting 104 mmHg BP Diastolic Sitting 70 mmHg Body Temperature 98.4 F BMI (Body Mass Index) 31.2 kg/m2 04/09/2012 Height 67 inches 5'7" Weight 197.75 lb Heart Rate 80 /min BP Systolic Sitting 104 mmHg BP Diastolic Sitting 60 mmHg BMI (Body Mass Index) 31.0 kg/m2 10/29/2011 Height 67 inches 5'7" Weight 192.00 lb Heart Rate 64 /min BP Systolic Sitting 146 mmHg BP Diastolic Sitting 74 mmHg BMI (Body Mass Index) 30.1 kg/m2 07/18/2011 Height 67 inches 5'7" Weight 190.00 lb Heart Rate 64 /min BP Systolic Sitting 130 mmHg BP Diastolic Sitting 64 mmHg BMI (Body Mass Index) 29.8 kg/m2 06/11/2011 Height 67 inches 5'7" Weight 185.00 lb Heart Rate 68 /min BP Systolic Sitting 120 mmHg L BP Diastolic Sitting 78 mmHg L BMI (Body Mass Index) 29.0 kg/m2 05/22/2011 Height 67 inches 5'7" Weight 185.00 lb Heart Rate 64 /min BP Systolic 133 mmHg BP Diastolic 82 mmHg BMI (Body Mass Index) 29.0 kg/m2 03/24/2011 Height 66.5 inches 5'6.50" Weight 189.00 lb Heart Rate 76 /min BP Systolic Sitting 130 mmHg BP Diastolic Sitting 70 mmHg BMI (Body Mass Index) 30.0 kg/m2 12/30/2010 Weight 188.00 lb Heart Rate 72 /min BP Systolic Sitting 126 mmHg BP Diastolic Sitting 80 mmHg 07/31/2010 Weight 191.50 lb Heart Rate 78 /min BP Systolic 104 mmHg BP Diastolic 70 mmHg Results Test Date Test Result H/L Range Note CBC Auto Diff 01/01/2018 White Blood Count 4.7 10^3/uL 3.5-10.8 Red Blood Count 4.90 10^6/uL 4.0-5.4 Hemoglobin 14.0 g/dL 12.0-16.0 Hematocrit 43 % 35-47 Mean Corpuscular Volume 87 fL 80-97 Mean Corpuscular Hemoglobin 29 pg 27-31 Mean Corpuscular HGB Conc 33 g/dL 31-36 Red Cell Distribution Width 13 % 10.5-15 Platelet Count 201 10^3/uL 150-450 Mean Platelet Volume 8.2 um3 7.4-10.4 Abs Neutrophils 2.5 10^3/uL 1.5-7.7 Abs Lymphocytes 1.8 10^3/uL 1.0-4.8 Abs Monocytes 0.3 10^3/uL 0-0.8 Abs Eosinophils 0.1 10^3/uL 0-0.6 Abs Basophils 0 10^3/uL 0-0.2 Abs Nucleated RBC 0 10^3/uL Granulocyte % 52.5 % 38-83 Lymphocyte % 39.0 % 25-47 Monocyte % 5.6 % 0-7 Eosinophil % 2.3 % 0-6 Basophil % 0.6 % 0-2 Nucleated Red Blood Cells % 0.1 Laboratory test 01/01/2018 D Dimer Quantitative < 200 ng/mL Less Than 230 1 finding Troponin-I (TnI) 0.00 ng/mL <0.04 2 C Reactive Protein 5.47 mg/L High < 5.00 3 Lipid Profile (Trig/Chol/HDL) 01/01/2018 Triglycerides 116 mg/dL 4 Cholesterol 201 mg/dL 5 HDL Cholesterol 48.6 mg/dL 6 LDL Cholesterol 129 mg/dL 7 CBC Auto Diff 12/23/2017 White Blood Count 4.4 10^3/uL 3.5-10.8 Red Blood Count 4.99 10^6/uL 4.0-5.4 Hemoglobin 14.8 g/dL 12.0-16.0 Hematocrit 44 % 35-47 Mean Corpuscular Volume 88 fL 80-97 Mean Corpuscular Hemoglobin 30 pg 27-31 Mean Corpuscular HGB Conc 34 g/dL 31-36 Red Cell Distribution Width 14 % 10.5-15 Platelet Count 160 10^3/uL 150-450 Mean Platelet Volume 8.2 um3 7.4-10.4 Abs Neutrophils 2.3 10^3/uL 1.5-7.7 Abs Lymphocytes 1.4 10^3/uL 1.0-4.8 Abs Monocytes 0.5 10^3/uL 0-0.8 Abs Eosinophils 0.1 10^3/uL 0-0.6 Abs Basophils 0 10^3/uL 0-0.2 Abs Nucleated RBC 0 10^3/uL Granulocyte % 52.8 % 38-83 Lymphocyte % 32.3 % 25-47 Monocyte % 11.3 % High 0-7 Eosinophil % 2.5 % 0-6 Basophil % 1.1 % 0-2 Nucleated Red Blood Cells % 0.1 Inr/Protime 12/23/2017 Inr 1.12 High 0.77-1.02 Laboratory test finding 12/23/2017 Partial Thrombo Time 30.3 seconds 26.0 -36.3 PTT D Dimer Quantitative < 200 ng/mL Less Than 230 8 Lactic Acid 1.2 mmol/L 0.5-2.0 9 B-Type Natriuretic Peptide BNP 22 pg/mL 10 Troponin-I (TnI) 0.00 ng/mL <0.04 CKMB 12/23/2017 CKMB ng/mL 1.0 ng/mL 0.6-6.3 Comp Metabolic Panel 12/23/2017 Sodium 140 mmol/L 139-145 Potassium 3.8 mmol/L 3.5-5.0 Chloride 105 mmol/L 101-111 Co2 Carbon Dioxide 25 mmol/L 22-32 Anion Gap 10 mmol/L 2-11 Glucose 94 mg/dL 70-100 Blood Urea Nitrogen 17 mg/dL 6-24 Creatinine 0.87 mg/dL 0.51-0.95 BUN/Creatinine Ratio 19.5 8-20 Calcium 9.1 mg/dL 8.6-10.3 Total Protein 7.0 g/dL 6.4-8.9 Albumin 4.2 g/dL 3.2-5.2 Globulin 2.8 g/dL 2-4 Albumin/Globulin Ratio 1.5 1-3 Total Bilirubin 0.40 mg/dL 0.2-1.0 Alkaline Phosphatase 65 U/L 34-104 Alt 12 U/L 7-52 Ast 15 U/L 13-39 Egfr Non- 65.8 >60 Egfr 84.6 >60 11 Laboratory test finding 12/23/2017 Magnesium 2.2 mg/dL 1.9-2.7 Lipase 28 U/L 11.0-82.0 Creatine Kinase(CK) 53 U/L 10-223 C Reactive Protein 31.15 mg/L High < 5.00 12 TSH (Thyroid Stim Horm) 1.20 mcIU/mL 0.34-5.60 Basic Metabolic Panel 11/02/2017 Sodium 139 mmol/L 133-145 Potassium 4.8 mmol/L 3.5-5.0 Chloride 105 mmol/L 101-111 Co2 Carbon Dioxide 28 mmol/L 22-32 Anion Gap 6 mmol/L 2-11 Glucose 92 mg/dL 70-100 Blood Urea Nitrogen 16 mg/dL 6-24 Creatinine 0.86 mg/dL 0.51-0.95 BUN/Creatinine Ratio 18.6 8-20 Calcium 9.4 mg/dL 8.6-10.3 Egfr Non- 66.6 >60 Egfr 85.7 >60 13 Poc Urinalysis 11/02/2017 Poc Glucose, Urine Negative Negative Poc Bilirubin, Urine Negative Negative Poc Ketone, Urine Negative Negative Poc Specific [place], Urine 1.020 1.010-1.030 Poc Blood, Urine Negative Negative Poc pH, Urine 5.5 5-9 Poc Protein, Urine Negative Negative Poc Urobilinogen, Urine 0.2 Negative Poc Nitrite, Urine Negative Negative Poc Leukocytes, Urine Negative Negative Poc Color, Urine Yellow Poc Clarity, Urine Clear 14 Urine Culture And 11/02/2017 Urine Culture SEE RESULT BELOW 15, 16 Sensitivities CBC Auto Diff 08/06/2017 White Blood Count 5.6 10^3/uL 3.5-10.8 Red Blood Count 5.02 10^6/uL 4.0-5.4 Hemoglobin 14.8 g/dL 12.0-16.0 Hematocrit 45 % 35-47 Mean Corpuscular Volume 90 fL 80-97 Mean Corpuscular Hemoglobin 30 pg 27-31 Mean Corpuscular HGB Conc 33 g/dL 31-36 Red Cell Distribution Width 14 % 10.5-15 Platelet Count 187 10^3/uL 150-450 Mean Platelet Volume 9 um3 7.4-10.4 Abs Neutrophils 3.1 10^3/uL 1.5-7.7 Abs Lymphocytes 2.0 10^3/uL 1.0-4.8 Abs Monocytes 0.3 10^3/uL 0-0.8 Abs Eosinophils 0.1 10^3/uL 0-0.6 Abs Basophils 0 10^3/uL 0-0.2 Abs Nucleated RBC 0.01 10^3/uL Granulocyte % 55.8 % 38-83 Lymphocyte % 35.5 % 25-47 Monocyte % 5.9 % 1-9 Eosinophil % 2.3 % 0-6 Basophil % 0.5 % 0-2 Nucleated Red Blood Cells % 0.1 Comp Metabolic Panel 08/06/2017 Sodium 141 mmol/L 133-145 Potassium 4.6 mmol/L 3.5-5.0 Chloride 107 mmol/L 101-111 Co2 Carbon Dioxide 28 mmol/L 22-32 Anion Gap 6 mmol/L 2-11 Glucose 96 mg/dL 70-100 Blood Urea Nitrogen 20 mg/dL 6-24 Creatinine 0.82 mg/dL 0.51-0.95 BUN/Creatinine Ratio 24.4 High 8-20 Calcium 9.1 mg/dL 8.6-10.3 Total Protein 6.5 g/dL 6.4-8.9 Albumin 4.2 g/dL 3.2-5.2 Globulin 2.3 g/dL 2-4 Albumin/Globulin Ratio 1.8 1-3 Total Bilirubin 0.40 mg/dL 0.2-1.0 Alkaline Phosphatase 58 U/L 34-104 Alt 12 U/L 7-52 Ast 13 U/L 13-39 Egfr Non- 70.4 >60 Egfr 90.6 >60 17 Laboratory test finding 08/06/2017 Erythrocyte Sed Rate 11 mm/Hr 0-30 C Reactive Protein 3.50 mg/L < 5.00 18 Magnesium 2.1 mg/dL 1.9-2.7 Ferritin 146.4 ng/mL 11-307 Vitamin B12 392 pg/mL 180-914 19 Nuclear AB ([place]) By Ifa Igg <1:80 (Negative) 20 Vitamin D Total 25(Oh) 21.1 ng/mL 20-50 Bordetella PCR 05/21/2017 Bordetella Source Nasopharyngeal s <SEE NOTE&gt ; 21 Bordetella pertussis PCR Negative 22 Bordetella parapertussis PCR Negative 23 Laboratory test finding 01/07/2017 Erythrocyte Sed Rate 15 mm/Hr 0-30 C Reactive Protein 4.26 mg/L < 5.00 24 Connective Tissue Panel 01/07/2017 Anti-Nuclear Antibody 0.3 U 25 Cyclic Citrullinated Peptide <15.6 U 26 Interpretation See Comment 27 Laboratory test finding 01/07/2017 Rheumatoid Factor <15 IU/mL <15 28 Lyme Disease Serology Negative Negative 29 CBC Auto Diff 01/07/2017 White Blood Count 4.8 10^3/uL 3.5-10.8 Red Blood Count 5.23 10^6/uL 4.0-5.4 Hemoglobin 14.8 g/dL 12.0-16.0 Hematocrit 46 % 35-47 Mean Corpuscular Volume 88 fL 80-97 Mean Corpuscular Hemoglobin 28 pg 27-31 Mean Corpuscular HGB Conc 32 g/dL 31-36 Red Cell Distribution Width 14 % 10.5-15 Platelet Count 166 10^3/uL 150-450 Mean Platelet Volume 9 um3 7.4-10.4 Abs Neutrophils 2.8 10^3/uL 1.5-7.7 Abs Lymphocytes 1.6 10^3/uL 1.0-4.8 Abs Monocytes 0.3 10^3/uL 0-0.8 Abs Eosinophils 0.1 10^3/uL 0-0.6 Abs Basophils 0 10^3/uL 0-0.2 Abs Nucleated RBC 0 10^3/uL Granulocyte % 58.5 % 38-83 Lymphocyte % 33.1 % 25-47 Monocyte % 5.5 % 1-9 Eosinophil % 2.2 % 0-6 Basophil % 0.7 % 0-2 Nucleated Red Blood Cells % 0.1 Comp Metabolic Panel 01/07/2017 Sodium 140 mmol/L 133-145 Potassium 4.3 mmol/L 3.5-5.0 Chloride 106 mmol/L 101-111 Co2 Carbon Dioxide 27 mmol/L 22-32 Anion Gap 7 mmol/L 2-11 Glucose 84 mg/dL 70-100 Blood Urea Nitrogen 22 mg/dL 6-24 Creatinine 0.96 mg/dL High 0.51-0.95 BUN/Creatinine Ratio 22.9 High 8-20 Calcium 9.4 mg/dL 8.6-10.3 Total Protein 6.6 g/dL 6.4-8.9 Albumin 4.3 g/dL 3.2-5.2 Globulin 2.3 g/dL 2-4 Albumin/Globulin Ratio 1.9 1-3 Total Bilirubin 0.50 mg/dL 0.2-1.0 Alkaline Phosphatase 72 U/L 34-104 Alt 12 U/L 7-52 Ast 13 U/L 13-39 Egfr Non- 58.9 >60 Egfr 75.7 >60 30 Laboratory test 01/07/2017 TSH (Thyroid Stim Horm) 1.29 mcIU/mL 0.34- 5.60 finding Laboratory test 09/05/2016 TSH (Thyroid Stim Horm) 1.34 mcIU/mL 0.34- 5.60 31 finding Lipid Profile 09/05/2016 Triglycerides 84 mg/dL 32 (Trig/Chol/HDL) Cholesterol 233 mg/dL 33 HDL Cholesterol 58.4 mg/dL 34 LDL Cholesterol 158 mg/dL 35 Comp Metabolic Panel 09/05/2016 Sodium 138 mmol/L 133-145 Potassium 4.6 mmol/L 3.5-5.0 Chloride 105 mmol/L 101-111 Co2 Carbon Dioxide 29 mmol/L 22-32 Anion Gap 4 mmol/L 2-11 Glucose 93 mg/dL 70-100 Blood Urea Nitrogen 18 mg/dL 6-24 Creatinine 0.86 mg/dL 0.51-0.95 BUN/Creatinine Ratio 20.9 High 8-20 Calcium 9.2 mg/dL 8.6-10.3 Total Protein 6.7 g/dL 6.4-8.9 Albumin 4.3 g/dL 3.2-5.2 Globulin 2.4 g/dL 2-4 Albumin/Globulin Ratio 1.8 1-3 Total Bilirubin 0.50 mg/dL 0.2-1.0 Alkaline Phosphatase 76 U/L 34-104 Alt 22 U/L 7-52 Ast 15 U/L 13-39 Egfr Non- 66.9 >60 Egfr 86.0 >60 36 Creatinine Clearance 10/10/2013 Urine Random Creatinine 52.2 mg/dL Creatinine 0.9 mg/dL 0.5-1.4 Creatinine Clearance 99 mL/min 88-128 Urine Collection Time 24 Urine Total Volume 2450 mL Total Protein 24HR Urine 10/10/2013 Urine Random Total Protein < 6.0 mg/ dL Urine Total Protein/24HR (SEE NOTE) mg/24Hr 0-165 37 Comp Metabolic Panel 10/06/2013 Sodium 142 mmol/L 133-145 Potassium 4.7 mmol/L 3.5-5.0 Chloride 104 mmol/L 101-111 Co2 Carbon Dioxide 30.0 mmol/L 22-32 Anion Gap 8.0 mmol/L 2-11 Glucose 92 mg/dL 70-100 Blood Urea Nitrogen 16 mg/dL 6-24 Creatinine 0.80 mg/dL 0.50-1.40 BUN/Creatinine Ratio 20.0 8-20 Calcium 9.8 mg/dL 8.1-9.9 Total Protein 7.0 g/dL 6.2-8.1 Albumin 4.2 g/dL 3.6-5.4 Globulin 2.8 g/dL 2-4 Albumin/Globulin Ratio 1.5 1-3 Total Bilirubin 0.7 mg/dL 0.4-1.5 Alkaline Phosphatase 61 U/L 30-110 Alt 21 U/L 14-54 Ast 17 U/L 12-42 Egfr Non- 73.4 >60 Egfr 94.4 >60 38 Ua Routine 10/04/2013 Ua Specific [place] 1.010 Ua PH 5 Ua Color yellow Ua Appera clear Ua WBC negative Ua Protein trace Ua Glucose negative Ua Ketones sm Ua Bilirubin sm Ua Urobilinogen negative Ua Nitrite negative Ua Occult Blood negative Laboratory test 08/23/2013 C Reactive Protein < 0.5 mg/dL Less than 0.5 finding Erythrocyte Sed Rate 17 mm/Hr 0-30 [place] (Anti-Nuclear AB) Screen Negative Negative 39 Lyme Disease Serology Negative Negative 40 Vitamin B12 497 pg/mL 180-914 TSH (Thyroid Stimulating Horm) 0.75 miu/mL 0.34-5.60 Vitamin D, 25 Hydroxy 08/23/2013 25-Hydroxy Vitamin D2 <4.0 ng/mL 25-Hydroxy Vitamin D3 28 ng/mL 25-Hydroxy Vitamin D Total 28 ng/mL 41 Laboratory test 09/06/2012 Helicobacter pylori IgG <0.75 index 42 finding Ab CBC With Manual Diff 09/06/2012 White Blood Count 6.0 10^3/uL 4.8-10.8 Red Blood Count 4.72 10^6/uL 4.0-5.4 Hemoglobin 13.9 g/dL 12.0-16.0 Hematocrit 42 % 35-47 Mean Corpuscular Volume 90 fL 80-97 Mean Corpuscular Hemoglobin 30 pg 27-31 Mean Corpuscular HGB Conc 33 g/dL 31-36 Red Cell Distribution Width 13 % 10.5-15 Platelet Count 200 10^3/uL 150-450 Mean Platelet Volume 9 um3 7.4-10.4 Abs Neutrophils 3.4 10^3/uL 1.5-7.7 Abs Lymphocytes 2.0 10^3/uL 1.0-4.8 Abs Monocytes 0.4 10^3/uL 0-0.8 Abs Eosinophils 0.1 10^3/uL 0-0.6 Abs Basophils 0 10^3/uL 0-0.2 Abs Nucleated RBC 0 10^3/uL Neutrophil % 65.0 % 38-83 Band % 0 % 0-8 Lymphocytes % 29.0 % 25-47 Monocytes % 4.0 % 0-13 Eosinophils % 0 % 0-6 Basophil % 2.0 % 0-2 Reactive Lymph % 0 % 0-6 Metamyelocytes % 0 % 0-2 Myelocytes % 0 % 0-1 Promyelocytes % 0 % Blast % 0 % RBC Morphology Normal Normal CBC Auto Diff 05/07/2012 White Blood Count 6.1 CUMM 4.8-10.8 Red Cell Count 4.49 CUMM 4.2-5.4 Hemoglobin 13.6 g/dL 12.0-16.0 Hematocrit 40 % 35-47 Mean Corpuscular Volume 90 um3 79-97 Mean Corpuscular Hemoglob 30 pg 27-31 Mean Corpuscular HGB Cone 34 g/dL 32-36 Redcell Distribution WDTH 14 % 10.5-15 Platelet Count 167 CUMM 150-450 Mean Platelet Volume 8.5 um3 7.4-10.4 Gran % 57.1 % 38-83 Lymph % 34.4 % 20-45 Mononuclear % 5.9 % 1-9 Eosinophil % 1.7 % 0-6 Basophil % 0.9 % 0-2 Abs Lymphs 2.1 1.0-4.8 Abs Mononuclear 0.4 0-0.8 Absolute Neutrophil Count 3.5 1.5-7.7 Abs Eosinophils 0.1 0-0.6 Abs Basophils 0.1 0-0.2 Laboratory test 05/07/2012 C Reactive Protein < 0.5 mg/dL Less Than 0.5 finding Erythrocyte Sed Rate 17 MM/HR 0-30 Laboratory test finding 04/09/2012 Thyroxine Free 0.93 ng/dL 0.61-1.24 TSH 0.94 MIU/ML 0.34-5.60 CBC With Manual Diff 10/29/2011 White Blood Count 5.4 CUMM 4.8-10.8 43 Red Cell Count 4.78 CUMM 4.2-5.4 43 Hemoglobin 14.4 g/dL 12.0-16.0 43 Hematocrit 42 % 35-47 43 Mean Corpuscular Volume 88 um3 79-97 43 Mean Corpuscular Hemoglob 30 pg 27-31 43 Mean Corpuscular HGB Cone 34 g/dL 32-36 43 Redcell Distribution WDTH 13 % 10.5-15 43 Platelet Count 178 CUMM 150-450 43 Mean Platelet Volume 9.2 um3 7.4-10.4 43 Polysegmented Neutrophil 68 % 38-83 43 Lymphocyte 29 % 25-47 43 Monocyte 1 % 0-13 43 Eosinophil 2 % 0-6 43 Absolute Neutrophil Count 3.6 43 RBC Morphology NORMAL 43 Comp Metabolic Panel 10/29/2011 Sodium 140 mmol/L 135-145 43 Potassium 4.1 mmol/L 3.5-5.0 43 Chloride 104 mmol/L 101-111 43 Co2 (Carbon Dioxide) 27.0 mmol/L 22-32 43 Anion Gap 9.0 mmol/L 2-11 43, 44 Glucose 97 mg/dL 70-100 43 BUN 17 mg/dL 6-24 43 Creatinine 0.8 mg/dL 0.50-1.40 43 One Over Creatinine 1.25 43 BUN/Creatinine Ratio 21.3 High 8-20 43 Calcium 9.6 mg/dL 8.1-9.9 43 Total Protein 7.1 GM/DL 6.2-8.1 43 Albumin 4.4 GM/DL 3.6-5.4 43 Globulin 2.7 GM/DL 2-4 43 Albumin/Globulin Ratio 1.6 1-3 43 Bilirubin Total 0.6 mg/dL 0.4-1.5 43, 45 Alkaline Phosphatase 62 U/L 30-110 43 Alt (SGPT) 18 U/L 14-54 43 Ast (Sgot) 15 U/L 12-42 43 eGFR Non- 73.9 > 60 43 eGFR 95.1 > 60 43, 46 Laboratory test finding 10/29/2011 Vitamin B12 471 pg/mL 180-914 43 CBC Auto Diff 07/16/2011 White Blood Count 6.1 CUMM 4.8-10.8 Red Cell Count 4.98 CUMM 4.2-5.4 Hemoglobin 15.1 g/dL 12.0-16.0 Hematocrit 44 % 35-47 Mean Corpuscular Volume 88 um3 79-97 Mean Corpuscular Hemoglob 30 pg 27-31 Mean Corpuscular HGB Cone 35 g/dL 32-36 Redcell Distribution WDTH 13 % 10.5-15 Platelet Count 179 CUMM 150-450 Mean Platelet Volume 8.4 um3 7.4-10.4 Gran % 78.4 % 38-83 Lymph % 15.8 % Low 25-47 Mononuclear % 5.0 % 1-9 Eosinophil % 0.6 % 0-6 Basophil % 0.2 % 0-2 Abs Lymphs 1.0 1.0-4.8 Abs Mononuclear 0.3 0-0.8 Absolute Neutrophil Count 4.8 1.5-7.7 Abs Eosinophils 0 0-0.6 Abs Basophils 0 0-0.2 47 Comp Metabolic Panel 07/16/2011 Sodium 141 mmol/L 135-145 Potassium 4.3 mmol/L 3.5-5.0 Chloride 108 mmol/L 101-111 Co2 (Carbon Dioxide) 25.0 mmol/L 22-32 Anion Gap 8.0 mmol/L 2-11 48 Glucose 101 mg/dL High 70-100 BUN 18 mg/dL 6-24 Creatinine 0.9 mg/dL 0.50-1.40 One Over Creatinine 1.11 BUN/Creatinine Ratio 20.0 8-20 Calcium 9.4 mg/dL 8.1-9.9 Total Protein 7.3 GM/DL 6.2-8.1 Albumin 4.2 GM/DL 3.6-5.4 Globulin 3.1 GM/DL 2-4 Albumin/Globulin Ratio 1.4 1-3 Bilirubin Total 0.8 mg/dL 0.4-1.5 49 Alkaline Phosphatase 58 U/L 30-110 Alt (SGPT) 20 U/L 14-54 Ast (Sgot) 23 U/L 12-42 eGFR Non- 64.5 > 60 eGFR 83.0 > 60 50 Liver Function Panel 07/16/2011 Bilirubin Direct 0.1 mg/dL 0.1-0.5 Indirect Bilirubin 0.7 mg/dL 0.3-1.0 51 Laboratory test finding 07/16/2011 Lipase 25 U/L 22-51 Urinalysis W/Microscopic 07/16/2011 Ua Color YELLOW Yellow Appearance-Urine CLEAR Clear Specific [place]-Ur 1.007 Low 1.010-1.030 Esterase-Urine 1+ Negative Nitrite NEGATIVE Negative Ksfmmknuipvd-Ex-NJC NEGATIVE Negative Protein-Urine NEGATIVE Negative PH-Urine 7.5 5-9 Blood-Urine NEGATIVE Negative Ketones-Urine NEGATIVE Negative Bilirubin-Ur NEGATIVE Negative Glucose-Urine NEGATIVE Negative WBC-Urine 3-5 0-5 RBC-Urine NONE SEEN 0-2 Epith Cells-Ur FEW None Bacteria-Urine TRACE None Urine Culture & 07/16/2011 Urine Culture Sensitivi NG 52 Sensitivi Surgical Pathology 02/28/2011 Surgical Pathology 53 <SEE NOTE> 1 Please note: The following may produce a false positive D Dimer test: - Rheumatoid factor greater than 60 IU/ml - Plasma hemoglobin greater than 0.05 gm/dl - Bilirubin greater than 50 mg/dl - Lipids greater than 1000 mg/dl - FDP greater than 20 ug/ml 2 FASTING 10 HOUR 3 Acute inflammation: >10.00 4 Desirable: <150 Borderline High: 150-199 High: 200-499 Very High: >500 5 Desirable: <200 Borderline High: 200-239 High: >239 6 Low: <40 Desirable: 40-60 High: >60 7 Desirable: <100 Near Optimal: 100-129 Borderline High: 130-159 High: 160-189 Very High: >189 8 Please note: The following may produce a false positive D Dimer test: - Rheumatoid factor greater than 60 IU/ml - Plasma hemoglobin greater than 0.05 gm/dl - Bilirubin greater than 50 mg/dl - Lipids greater than 1000 mg/dl - FDP greater than 20 ug/ml 9 [facility] Severe Sepsis and Septic Shock Management Bundle Measure requires all lactic acids initially measuring >2.0 mmol/L be repeated. 10 >100 to <200 pg/mL: likely compensated congestive heart failure (CHF) 200 to 400 pg/mL: likely moderate CHF >400 pg/mL: likely moderate to severe CHF 11 Because ethnic data is not always readily available, this report includes an eGFR for both -Americans and non- Americans. The National Kidney Disease Education Program (NKDEP) does not endorse the use of the MDRD equation for patients that are not between the ages of 18 and 70, are , have extremes of body size, muscle mass, or nutritional status, or are non- or non-. According to the National Kidney Foundation, irrespective of diagnosis, the stage of the disease is based on the level of kidney function: Stage Description GFR(mL/min/1.73 m(2)) 1 Kidney damage with normal or decreased GFR 90 2 Kidney damage with mild decrease in GFR 60-89 3 Moderate decrease in GFR 30-59 4 Severe decrease in GFR 15-29 5 Kidney failure <15 (or dialysis) 12 Acute inflammation: >10.00 13 Because ethnic data is not always readily available, this report includes an eGFR for both -Americans and non- Americans. The National Kidney Disease Education Program (NKDEP) does not endorse the use of the MDRD equation for patients that are not between the ages of 18 and 70, are , have extremes of body size, muscle mass, or nutritional status, or are non- or non-. According to the National Kidney Foundation, irrespective of diagnosis, the stage of the disease is based on the level of kidney function: Stage Description GFR(mL/min/1.73 m(2)) 1 Kidney damage with normal or decreased GFR 90 2 Kidney damage with mild decrease in GFR 60-89 3 Moderate decrease in GFR 30-59 4 Severe decrease in GFR 15-29 5 Kidney failure <15 (or dialysis) 14 [place]: [id number] 16 SEE RESULT BELOW Name: CINDY SHAH : [address]: Reyes Winters MD Acct: [id number] Unit: [id number] AGE: 62 Location: [facility] Re11/02/17 SEX: F Status: DEP ER SPEC: [id number] ISREAL: 11/02/17-[address] [facility] [address]: Reyes Winters MD REQ: [id number] RECD: 11/02/17-161 STATUS: CHRISTINE GOMEZ DR: Yinka Orozco CIRCULAR KNITTER _ SOURCE: URINE SPDESC: ORDERED: Urine Culture COMMENTS: [id number] Procedure Result Reported Site Urine Culture Final 11/03/17- 1213 ML No Growth (<1,000 CFU/mL) * ML - MAIN LAB (PSC1) . END OF REPORT * ML=Testing performed at Main Lab DEPARTMENT OF PATHOLOGY, [address] [place] [address] Kamlesh Stark M.D. Director [facility] # [id number] 17 Because ethnic data is not always readily available, this report includes an eGFR for both -Americans and non- Americans. The National Kidney Disease Education Program (NKDEP) does not endorse the use of the MDRD equation for patients that are not between the ages of 18 and 70, are , have extremes of body size, muscle mass, or nutritional status, or are non- or non-. According to the National Kidney Foundation, irrespective of diagnosis, the stage of the disease is based on the level of kidney function: Stage Description GFR(mL/min/1.73 m(2)) 1 Kidney damage with normal or decreased GFR 90 2 Kidney damage with mild decrease in GFR 60-89 3 Moderate decrease in GFR 30-59 4 Severe decrease in GFR 15-29 5 Kidney failure <15 (or dialysis) 18 Acute inflammation: >10.00 19 Normal Range 180 to 914 Indeterminate Range 145 to 180 Deficient Range <145 20 <1:80 (Negative) REFERENCE VALUE <1:80 (Negative) Test Performed by: [facility] - [address] [address] 21 Nasopharyngeal swab 22 REFERENCE VALUE Not Applicable 23 REFERENCE VALUE Not Applicable ADDITIONAL INFORMATION This test was developed and its performance characteristics determined by [facility] in a manner consistent with CLIA requirements. This test has not been cleared or approved by the U.S. Food and Drug Administration. Test Performed by: [facility] - [address] [address] 24 Acute inflammation: >10.00 25 REFERENCE VALUE <=1.0 (Negative) 26 REFERENCE VALUE <20.0 (Negative) 27 Tests for antibodies to dsDNA and VENICE antigens are not performed automatically unless the MARBIN result is > or= 3.0 U. Studies performed at [facility] indicate that positive MARBIN results <3.0 U are rarely accompanied by positive second order tests. Test Performed by: [facility] [address] [place] [address] 28 Test Performed by: [place] [address] [place] [address] 29 Serologic response to B. burgdorferi infection is not detected, but cannot rule out early infection during which low or undetectable antibody levels to B. burgdorferi may be present. If clinically indicated, a new serum specimen should be submitted in 7-14 days. Test Performed by: [facility] - [facility] [address] [place] [address] 30 Because ethnic data is not always readily available, this report includes an eGFR for both -Americans and non- Americans. The National Kidney Disease Education Program (NKDEP) does not endorse the use of the MDRD equation for patients that are not between the ages of 18 and 70, are , have extremes of body size, muscle mass, or nutritional status, or are non- or non-. According to the National Kidney Foundation, irrespective of diagnosis, the stage of the disease is based on the level of kidney function: Stage Description GFR(mL/min/1.73 m(2)) 1 Kidney damage with normal or decreased GFR 90 2 Kidney damage with mild decrease in GFR 60-89 3 Moderate decrease in GFR 30-59 4 Severe decrease in GFR 15-29 5 Kidney failure <15 (or dialysis) 31 FASTING 10 HOUR 32 Desirable <150 Borderline high 150-199 High 200-499 Very High >500 33 Desirable <200 Borderline high 200-239 High >239 34 Low <40 Desirable: 40-60 High: >60 35 Desirable: <100 mg/dL Near Optimal: 100-129 mg/dL Borderline High: 130-159 mg/dL High: 160-189 mg/dL Very High: >189 mg/dL 36 Because ethnic data is not always readily available, this report includes an eGFR for both -Americans and non- Americans. The National Kidney Disease Education Program (NKDEP) does not endorse the use of the MDRD equation for patients that are not between the ages of 18 and 70, are , have extremes of body size, muscle mass, or nutritional status, or are non- or non-. According to the National Kidney Foundation, irrespective of diagnosis, the stage of the disease is based on the level of kidney function: Stage Description GFR(mL/min/1.73 m(2)) 1 Kidney damage with normal or decreased GFR 90 2 Kidney damage with mild decrease in GFR 60-89 3 Moderate decrease in GFR 30-59 4 Severe decrease in GFR 15-29 5 Kidney failure <15 (or dialysis) 37 Unable to calculate due to insufficient protein 38 Because ethnic data is not always readily available, this report includes an eGFR for both -Americans and non- Americans. The National Kidney Disease Education Program (NKDEP) does not endorse the use of the MDRD equation for patients that are not between the ages of 18 and 70, are , have extremes of body size, muscle mass, or nutritional status, or are non- or non-. According to the National Kidney Foundation, irrespective of diagnosis, the stage of the disease is based on the level of kidney function: Stage Description GFR(mL/min/1.73 m(2)) 1 Kidney damage with normal or decreased GFR 90 2 Kidney damage with mild decrease in GFR 60-89 3 Moderate decrease in GFR 30-59 4 Severe decrease in GFR 15-29 5 Kidney failure <15 (or dialysis) 39 @Sample frozen by [id number] at 1927 on 08/23/13. 40 Serologic response to B. burgdorferi infection is not detected, but cannot rule out early infection during which low or undetectable antibody levels to B. burgdorferi may be present. If clinically indicated, a new serum specimen should be submitted in 7-14 days. Test Performed by: [facility] [place] [address] Pre K Lead Teacher: Abraham Paulino III, M.D. 41 -- REFERENCE VALUE -- 25-HYDROXY D TOTAL (D2+D3) Optimum levels in the healthy population are 20-50, patients with bone disease may benefit from higher levels within this range. Test Performed by: [place] [address] Pre K Lead Teacher: Abraham Paulino III, M.D. 42 -- REFERENCE VALUE -- <0.75 (Negative) 0.75-0.99 (Equivocal) >=1.00 (Positive) Test Performed by: [facility] [address] [place] [address] Pre K Lead Teacher: Abraham Paulino III, M.D. 43 NON FASTING 44 Anion gap measurement may be of limited value in the presence of any alkalosis, especially in a combined acid base disorder. . 45 A metabolite of Naproxen, O-desmethylnaproxen, has been shown to interfere with the Jendrassik-Wellford method for measuring total bilirubin. Samples from patients who have taken Naproxen have shown spurious elevation in total bilirubin levels. 46 Because ethnic data is not always readily available, this report includes an eGFR for both -Americans and non- Americans. The National Kidney Disease Education Program (NKDEP) does not endorse the use of the MDRD equation for patients that are not between the ages of 18 and 70, are , have extremes of body size, muscle mass, or nutritional status, or are non- or non-. According to the National Kidney Foundation, irrespective of diagnosis, the stage of the disease is based on the level of kidney function: Stage Description GFR(mL/min/1.73 m(2)) 1 Kidney damage with normal or decreased GFR 90 2 Kidney damage with mild decrease in GFR 60-89 3 Moderate decrease in GFR 30-59 4 Severe decrease in GFR 15-29 5 Kidney failure <15 (or dialysis) 47 Lymphopenia % 48 Anion gap measurement may be of limited value in the presence of any alkalosis, especially in a combined acid base disorder. . 49 A metabolite of Naproxen, O-desmethylnaproxen, has been shown to interfere with the Jendrassik-Wellford method for measuring total bilirubin. Samples from patients who have taken Naproxen have shown spurious elevation in total bilirubin levels. 50 Because ethnic data is not always readily available, this report includes an eGFR for both -Americans and non- Americans. The National Kidney Disease Education Program (NKDEP) does not endorse the use of the MDRD equation for patients that are not between the ages of 18 and 70, are , have extremes of body size, muscle mass, or nutritional status, or are non- or non-. According to the National Kidney Foundation, irrespective of diagnosis, the stage of the disease is based on the level of kidney function: Stage Description GFR(mL/min/1.73 m(2)) 1 Kidney damage with normal or decreased GFR 90 2 Kidney damage with mild decrease in GFR 60-89 3 Moderate decrease in GFR 30-59 4 Severe decrease in GFR 15-29 5 Kidney failure <15 (or dialysis) 51 Please note updated reference range, effective 03/28/10 52 FINAL: NO GROWTH DAY 2 (<1,000 CFU/mL) 53 ---- RUN DATE: 03/04/11 [facility] NMI LIVE PAGE 1 RUN TIME: 1407 Specimen Inquiry RUN USER: INTERFACE -- Name: CINDY SHAH Vinnie Redwood Llct#: [id number] Status: REG REF Re02/28/11 Age/Sex: 55/F Unit#: [id number] [facility] -- Specimen: [id number] Spec Date: 02/28/[address]: Eladio tamayo MD Spec Type: SURGICAL P Received: 03/03/11-2293 Copies to: Callie Perry [facility] SPECIMEN RANDOM COLON BIOPSIES HISTORY POST-OP DIAGNOSIS: Colonoscopy to cecum. Random biopsy. CLINICAL INFORMATION: Abdominal pain. Diarrhea. GROSS DESCRIPTION The specimen is received in formalin labelled Cindy Shah, Random Colon Biopsies, and consists of multiple burch soft tissue fragments measuring 0.7 x 0.5 x 0.2 cm. Submitted entirely, one cassette. DIAGNOSIS Colon, random biopsies: A. Large intestinal mucosa with no significant pathologic abnormality. B. No evidence of microscopic/lymphocytic colitis or collagenous colitis identified. C. Two benign lymphoid aggregates noted. Signed Electronically by: KAMLESH STARK MD 03/04/11 1402 -- -- DEPARTMENT OF PATHOLOGY, [address] [place] [address] [facility] Permit #[id number] Karan Fernandes M.D. Optical Laboratory Mechanic Dir mariah -- Procedures Date CPT Code Description Status 01/06/2018 02963 Holter Monitor Review (24 hr)dr courtney & megan Completed only 12/31/2017 28092 ECG Monitor/Recording W/Visual Superimposition Scanning Completed 10/27/2017 Mammogram Completed 10/07/2017 34360 Nerve Conduction 09-10 Studies Completed 10/07/2017 71501 Needle Electromyography Complete, Five Or More Muscles Completed Studied 06/06/2015 64015 Cardiac Event Monitor Completed 06/06/2015 52559 Cardiac Event Monitor Completed 06/04/2015 21754 Stress Test Completed 06/04/2015 22837 Myocardial Perfusion Imaging Tomographic (Spect) Completed Multiple Studies 05/30/2015 39661 ECHO Transthoracic, Real-Time 2D With Doppler And Color Completed Flow 05/24/2015 53547 Holter Monitoring 24 HR New Completed 05/22/2015 34070 EKG Tracing & Interpretation Completed 03/31/2014 40790 Nerve Conduction 07-08 Studies Completed 06/12/2011 75158 Rad Exam; Foot Limited Completed 05/22/2011 20310 FX Treatment Closed Phalanx Other Than Great Toe W/O Completed Manip 02/28/2011 Colonoscopy Completed 04/24/2010 Bone Mineral Density Test Completed 04/24/2010 Mammogram Completed 10/06/2008 24940 EKG Tracing & Interpretation Completed Encounters Type Date Location Provider [facility] E/M Dx Office Visit 01/08/2018 [facility] Karley Farmer M.D. 96144 R94.02 8:30a Services Of [facility] G56.03 M54.31 Office Visit 10/02/2017 9:00a [facility] Karley Farmer M.D. 65473 R94.02 Services Of [facility] R20.2 R53.1 G50.1 M54.2 M54.5 G56.01 Office Visit 08/06/2017 11:40a [facility] [place] [address] G50.1 Radha R25.2 R68.2 E55.9 Office Visit 07/29/2017 11:20a [facility] Internal Medicine Aj Triplett Ela, [address] M54.2 - Deana Russo Office Visit 06/22/2017 9:45a [facility] Of Isa Casanova M.D. 95309 M25.561 Avery M25.461 S83.241D Office Visit 06/05/2017 2:00p [facility] Isa Casanova, 92417 S83.241D Avery Russo M25.561 M54.31 Office Visit 04/27/2017 1:15p [facility] Daron Candis 84023 S83.241D Of Avery Campbell MD Office Visit 03/16/2017 1:15p [facility] Daron Candis 32624 S83.241D Of Avery Campbell MD Office Visit 02/26/2017 9:00a [facility] Daron Candis 04773 M25.561 Of Avery Campbell MD Office Visit 01/07/2017 9:20a [facility] Internal Medicine Yinka Orozco, JENNIFFER 47512 M25.561 - Radha M25.50 R53.83 Office Visit 08/04/2016 9:00a [facility] [place] [address] E04.1 [place] Z13.220 Z13.1 Office Visit 07/04/2015 10:00a [facility] Of Valerioalyssa Vera, 26037 R00.2 Dutch Russo, [facility] Office Visit 05/22/2015 2:00p [facility] Valerio Vera, 79653 786.50 Dutch Russo, [facility] 785.1 Office Visit 12/25/2014 8:00a [facility] Of Irwin Rubio M.D. 33410 727.09 C.M.A. 715.96 Office Visit 07/19/2014 3:00p [facility] Of Heath Cm, 37623 355.6 C.MAnisha Russo Office Visit 06/15/2014 2:00p [facility] Of Heath Cm, 36395 355.6 CMino Russo Office Visit 01/17/2014 2:30p [facility] Reyes Brionesney, 31240 794.09 Services Of [employer] Inspector M.D. 782.0 Office Visit 12/20/2013 3:30p [facility] Reyes HernandezLuis [place], [address] 782.0 Services Of [employer] Inspector M.D. 794.09 Office Visit 11/29/2013 3:00p [facility] Internal Medicine Callie Perry, N.P. 50688 461.9 - [place] Office Visit 11/21/2013 11:20a [facility] Internal Medicine Callie Perry, N.P. 55113 461.9 - [place] Office Visit 10/04/2013 4:00p [facility] Internal Medicine Callie Perry, N.P. 96501 599.70 - [place] 791.0 724.5 Office Visit 08/23/2013 1:20p [facility] Internal Medicine Callie Perry, N.P. 93936 719.49 - [place] 789.03 728.87 Office Visit 09/06/2012 11:20a [facility] Internal Medicine Callie Perry, N.P. 68674 530.81 - [place] Office Visit 05/07/2012 1:40p [facility] Internal Medicine Nery Wright M.D. 90225 784.0 - [place] Office Visit 04/09/2012 3:00p [facility] Internal Medicine Callie Perry, N.P. 93573 726.32 - [place] 354.0 719.47 244.9 Office Visit 01/13/2012 2:00p Neurosurgery Services Yosi Crooks, 68957 723.0 Of [employer] Inspector M.D. Office Visit 10/29/2011 2:00p [facility] Internal Medicine - Callie Perry, 78310 337.00 [place] N.P. Office Visit 06/11/2011 11:40a DO Not Use Callie Varn, 61236 723.1 [employer] [facility] N.P. Office Visit 03/24/2011 3:00p DO Not Use Clalie Herbern, 14590 300.00 [employer] [facility] N.P. 780.93 Office Visit 12/30/2010 11:00a DO Not Use Callie Varn, 31817 789.03 [employer] [facility] N.P. Office Visit 07/31/2010 10:15a DO Not Use Pallavi Cordova M.D., 54385 729.5 [employer] [facility] FACP 726.31 Office Visit 04/17/2010 10:15a DO Not Use Callie Varn, 68183 V72.31 [employer] [facility] N.P. v72.31 V06.1 v06.1 Office Visit 11/13/2009 11:30a DO Not Use Callie Varn, 75617 789.07 [employer] [facility] N.P. Office Visit 10/31/2009 8:45a DO Not Use Callie Varn, 73078 240.9 [employer] [facility] N.P. 241.9 Office Visit 10/17/2009 3:15p DO Not Use Callie Varn, 73647 240.9 [employer] [facility] N.P. Office Visit 09/13/2009 4:00p DO Not Use Pallavi Cordova M.D., 59394 786.2 [employer] [facility] FACP Office Visit 08/24/2009 4:00p DO Not Use Pallavi Cordova M.D., 77746 786.50 [employer] [facility] FACP 786.2 Office Visit 03/16/2009 2:15p DO Not Use Callie Varn, 85378 599.0 [employer] [facility] N.P. Office Visit 03/01/2009 1:15p DO Not Use Pallavi Cordova M.D., 19450 599.0 [employer] [facility] FACP Office Visit 01/03/2009 1:00p DO Not Use Pallavi Cordova M.D., 85547 300.00 [employer] [facility] FACP Office Visit 11/09/2008 1:30p DO Not Use Pallavi Cordova M.D., 31874 272.4 [employer] [facility] FACP V62.82 Office Visit 10/06/2008 3:00p DO Not Use [employer] [facility] Pallavi Cordova 08869 V72.31 Karan, FACP 780.79 272.0 785.1 Plan of Care Future Appointment(s):02/12/2018 3:15 pm - Karley Farmer M.D. at [facility]01/19/2018 1:30 pm - Valerio Vera M.D., [facility] at [facility]01/18/2018 1:30 pm - Valerio Vera M.D., FAC, FASGA at [facility]01/18/2018 1:00 pm - Ica ECHO Schedule at [facility]01/08/2018 - Karley Farmer M.D.R94.02 Abnormal brain scanNew Labs:Ssa/SSB Abs IggFollow up:assistant front end manager: Please get Dr. Stahl' s notes from the two years. If there was an OCT done, please get report. Please schedule: next available 30 min f/u for cognitive testing and discussion regarding memory.G56.03 Carpal tunnel syndrome, bilateral upper limbsNew Therapy :Physical TherapyRecommendations:wear wrist splints at night, and during day with repetitive movements.M54.31 Sciatica, right side
--- OUTSIDE RECORDS SUMMARY | 2018-01-19 17:08 | XMS REPORT ---
:1955 External Reference #:[id number] Author Organization [facility] Address [address] [address] Phone [phone] Care Team Providers Name Role Phone Loree Doll MD Primary Care Physician Unavailable Payers Type Date Identification Numbers Payment Provider Subscriber Commercial Effective: Policy Number: [id number] Mcgregor/Totalcare Cindy Shah 2009 Medicaid PayID: [id number] [address] [address] [place] [address] Medigap Part B Effective: Policy Number: BS Facets Cindy Shah 2012 [id number] Expires: 2013 PayID: [id number] [address] [address] [place] [address] Commercial Expires: 2012 Policy Number: Molinatotalcare Cindy Birmingham [id number] Essential Pablo PayID: [id number] [address] [address] [place] [address] Problems Date Description Provider Status Onset: 05/22/2011 Pure hypercholesterolemia Callie Perry, N.P. Active Onset: 05/22/2011 Goiter Callie Perry, N.P. Active Onset: 05/22/2015 Chest pain Valerio Vera M.D., [facility], Active FASNC Onset: 05/22/2015 Palpitations Valerio Vera M.D., [facility], Active FASNC Onset: 06/05/2017 Sciatica Isa Casanova M.D. Active Family History Date Family Member(s) Problem(s) Comments General Heart Disease General Cancer General Thyroid Disease : (age 62 Father due to Cancer, Heart Disase, [place] (60) Years) Colon Father Colon Cancer age 62 Father UT : (age 64 Mother due to Cancer, Heart Disease, [place] (30's) Years) Lung Mother Lung Cancer 'and bone' , smoker, age 64 Mother Uterine Cancer First Son Adopted Siblings 6 4 Brothers, 2 Sisters 1 Sister with thyroid cancer and hypothyroidism 1 sister with jesus's thyroiditis, 1 brother with mariposa, 1 brother age 59 of UT, 1 brother stroke and HTN in 70s (States all males have HTN, two brothers diabetes, 4 brothers heart disease) Multiple sclerosis in maternal aunt and two nieces. 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 Catnip / Active Powder daily Unknown 0000 Doxycycline 08/25/ Hx Capsules 100mg 20caps one Yinka Hyclate 2016 - tablet Ernesto, LOG HOOKER 09/04/ twice 2017 daily for 10 days. Voltaren 06/01/ Hx Gel 1% 300gm apply 4 Yinka 2017 - grams of Ernesto, LOG HOOKER 06/21/ gel twice 2017 daily to the affected areas for 7 days. Voltaren 01/07/ Hx Gel 1% 300gm apply 4 M25.561 Yinka 2017 - grams of Ernesto, LOG HOOKER 08/28/ gel twice 2017 daily to the affected areas for 7 days. Doxycycline 11/29/ Hx Tablets 100mg 20tabs 1 po bid 461.9 Callie Hyclate 2014 - x 10 days Varn, 12/09/ N.P. 2013 Fluconazole 11/29/ Hx Tablets 150mg 2tabs one by 461.9 Callie 2014 - mouth january Varn, 12/13/ repeat in N.P. 2013 3 days as needed Fluconazole 11/24/ Hx Tablets 150mg 2tabs one by Callie 2013 - mouth january Varn, 11/29/ repeat in N.P. 2013 3 days as needed Azithromycin 11/21/ Hx Tablets 250mg 6tabs two tabs 461.9 Callie 2013 - day one, Varn, 11/29/ one daily N.P. 2013 until gone No Active Hx Unknown Medications 2012 - 2013 Amoxicillin/Clavu 05/09/ [...] 0000 - spray ea Tasha, 07/31/ nostril M.DLuis, 2009 daily as FACP needed Valerian Root / Hx Powder 1/2 tsp Unknown 0000 - in water 12/31/ nightly 2018 Milk Thistle / Hx Capsules 1 cap po Unknown Extract 0000 - daily 2014 Vitamin D3 / Hx Capsules 2000Unit 1 by Unknown 0000 - mouth day 2015 [place] And / Hx Once Unknown Nettle Tea 0000 - Daily 2015 Arnica / Hx Unknown 0000 - 2017 Medications Administered in Office Medication Date Status Form Strength Qnty SIG Indications Ordering Provider Technetium TC Administered Injection Valerio Garrison 99M 015 Reji Vera M.D., [facility], Per Unit Dose FASNC Up To 40 Millicuries Immunizations CPT Code Status Date Vaccine Lot # [id number] Given 04/17/2010 Tdap - Tetanus/Diptheria/Acellular Pertussis Vital Signs Date Vital Result Comment 12/31/2017 Weight 193.75 lb Heart Rate 69 [...] Test Date Test Result H/L Range Note Order 12/31/2017 Holter Monitor <pending> CBC Auto Diff 12/23/2017 White Blood Count [...] < 200 ng/mL Less Than 230 1 Lactic Acid 1.2 mmol/L 0.5-2.0 2 B-Type Natriuretic Peptide BNP 22 pg/mL 3 Troponin-I (TnI) 0.00 ng/mL <0.04 CKMB 12/23/2017 [...] Egfr Non- 65.8 >60 Egfr 84.6 >60 4 Laboratory test finding 12/23/2017 Magnesium 2.2 mg/dL 1.9-2.7 Lipase 28 U/L 11.0-82.0 Creatine Kinase(CK) 53 U/L 10-223 C Reactive Protein 31.15 mg/L High < 5.00 5 TSH (Thyroid Stim Horm) 1.20 mcIU/mL 0.34-5.60 Basic Metabolic Panel 11/02/2017 Sodium 139 mmol/L 133-145 Potassium 4.8 mmol/L 3.5-5.0 Chloride 105 mmol/L 101-111 Co2 Carbon Dioxide 28 mmol/L 22-32 Anion Gap 6 mmol/L 2-11 Glucose 92 mg/dL 70-100 Blood Urea Nitrogen 16 mg/dL 6-24 Creatinine 0.86 mg/dL 0.51-0.95 BUN/Creatinine Ratio 18.6 8-20 Calcium 9.4 mg/dL 8.6-10.3 Egfr Non- 66.6 >60 Egfr 85.7 >60 6 Poc Urinalysis 11/02/2017 Poc Glucose, Urine Negative Negative Poc Bilirubin, Urine Negative Negative Poc Ketone, Urine Negative Negative Poc Specific Bradford, Urine 1.020 1.010-1.030 Poc Blood, Urine Negative Negative Poc pH, Urine 5.5 5-9 Poc Protein, Urine Negative Negative Poc Urobilinogen, Urine 0.2 Negative Poc Nitrite, Urine Negative Negative Poc Leukocytes, Urine Negative Negative Poc Color, Urine Yellow Poc Clarity, Urine Clear 7 Urine Culture And 11/02/2017 Urine Culture SEE RESULT BELOW 8, 9 Sensitivities CBC Auto Diff 08/06/2017 White Blood [...] Egfr Non- 70.4 >60 Egfr 90.6 >60 10 Laboratory test finding 08/06/2017 Erythrocyte Sed Rate 11 mm/Hr 0-30 C Reactive Protein 3.50 mg/L < 5.00 11 Magnesium 2.1 mg/dL 1.9-2.7 Ferritin 146.4 ng/mL 11-307 Vitamin B12 392 pg/mL 180-914 12 Nuclear AB (Marbin) By Ifa Igg <1:80 (Negative) 13 Vitamin D Total 25(Oh) 21.1 ng/mL 20-50 Bordetella PCR 05/21/2017 Bordetella Source Nasopharyngeal s <SEE NOTE&gt ; 14 Bordetella pertussis PCR Negative 15 Bordetella parapertussis PCR Negative 16 Laboratory test finding 01/07/2017 Erythrocyte Sed Rate 15 mm/Hr 0-30 C Reactive Protein 4.26 mg/L < 5.00 17 Laboratory test finding 01/07/2017 TSH (Thyroid Stim Horm) 1.29 mcIU/mL 0.34-5.60 Comp Metabolic Panel 01/07/2017 Sodium 140 mmol/L [...] Egfr Non- 58.9 >60 Egfr 75.7 >60 18 Connective Tissue Panel 01/07/2017 Anti-Nuclear Antibody 0.3 U 19 Cyclic Citrullinated Peptide <15.6 U 20 Interpretation See Comment 21 Laboratory test finding 01/07/2017 Rheumatoid Factor <15 IU/mL <15 22 Lyme Disease Serology Negative Negative 23 CBC Auto Diff 01/07/2017 White Blood Count [...] Red Blood Cells % 0.1 Laboratory test 09/05/2016 TSH (Thyroid Stim Horm) 1.34 mcIU/mL 0.34- 5.60 24 finding Lipid Profile 09/05/2016 Triglycerides 84 mg/dL 25 (Trig/Chol/HDL) Cholesterol 233 mg/dL 26 HDL Cholesterol 58.4 mg/dL 27 LDL Cholesterol 158 mg/dL 28 Comp Metabolic Panel 09/05/2016 Sodium 138 mmol/L [...] Egfr Non- 66.9 >60 Egfr 86.0 >60 29 Total Protein 24HR Urine 10/10/2013 Urine Random Total Protein < 6.0 mg/ dL Urine Total Protein/24HR (SEE NOTE) mg/24Hr 0-165 30 Creatinine Clearance 10/10/2013 Urine Random Creatinine 52.2 mg/dL Creatinine 0.9 mg/dL 0.5-1.4 Creatinine Clearance 99 mL/min 88-128 Urine Collection Time 24 Urine Total Volume 2450 mL Comp Metabolic Panel 10/06/2013 Sodium 142 mmol/L [...] Egfr Non- 73.4 >60 Egfr 94.4 >60 31 Ua Routine 10/04/2013 Ua Specific Bradford 1.010 Ua PH 5 Ua Color yellow Ua Appera clear Ua WBC negative Ua Protein trace Ua Glucose negative Ua Ketones sm Ua Bilirubin sm Ua Urobilinogen negative Ua Nitrite negative Ua Occult Blood negative Vitamin D, 25 Hydroxy 08/23/2013 25-Hydroxy Vitamin D2 <4.0 ng/mL 25-Hydroxy Vitamin D3 28 ng/mL 25-Hydroxy Vitamin D Total 28 ng/mL 32 Laboratory test 08/23/2013 C Reactive Protein < 0.5 mg/dL Less than 0.5 finding Erythrocyte Sed Rate 17 mm/Hr 0-30 Marbin (Anti-Nuclear AB) Screen Negative Negative 33 Lyme Disease Serology Negative Negative 34 Vitamin B12 497 pg/mL 180-914 TSH (Thyroid Stimulating Horm) 0.75 miu/mL 0.34-5.60 Laboratory test 09/06/2012 Helicobacter pylori IgG <0.75 index 35 finding Ab CBC With Manual Diff 09/06/2012 [...] 10/29/2011 White Blood Count 5.4 CUMM 4.8-10.8 36 Red Cell Count 4.78 CUMM 4.2-5.4 36 Hemoglobin 14.4 g/dL 12.0-16.0 36 Hematocrit 42 % 35-47 36 Mean Corpuscular Volume 88 um3 79-97 36 Mean Corpuscular Hemoglob 30 pg 27-31 36 Mean Corpuscular HGB Cone 34 g/dL 32-36 36 Redcell Distribution WDTH 13 % 10.5-15 36 Platelet Count 178 CUMM 150-450 36 Mean Platelet Volume 9.2 um3 7.4-10.4 36 Polysegmented Neutrophil 68 % 38-83 36 Lymphocyte 29 % 25-47 36 Monocyte 1 % 0-13 36 Eosinophil 2 % 0-6 36 Absolute Neutrophil Count 3.6 36 RBC Morphology NORMAL 36 Comp Metabolic Panel 10/29/2011 Sodium 140 mmol/L 135-145 36 Potassium 4.1 mmol/L 3.5-5.0 36 Chloride 104 mmol/L 101-111 36 Co2 (Carbon Dioxide) 27.0 mmol/L 22-32 36 Anion Gap 9.0 mmol/L 2-11 36, 37 Glucose 97 mg/dL 70-100 36 BUN 17 mg/dL 6-24 36 Creatinine 0.8 mg/dL 0.50-1.40 36 One Over Creatinine 1.25 36 BUN/Creatinine Ratio 21.3 High 8-20 36 Calcium 9.6 mg/dL 8.1-9.9 36 Total Protein 7.1 GM/DL 6.2-8.1 36 Albumin 4.4 GM/DL 3.6-5.4 36 Globulin 2.7 GM/DL 2-4 36 Albumin/Globulin Ratio 1.6 1-3 36 Bilirubin Total 0.6 mg/dL 0.4-1.5 36, 38 Alkaline Phosphatase 62 U/L 30-110 36 Alt (SGPT) 18 U/L 14-54 36 Ast (Sgot) 15 U/L 12-42 36 eGFR Non- 73.9 > 60 36 eGFR 95.1 > 60 36, 39 Laboratory test finding 10/29/2011 Vitamin B12 471 pg/mL 180-914 36 Urine Culture & 07/16/2011 Urine Culture Sensitivi NG 40 Sensitivi Urinalysis W/Microscopic 07/16/2011 Ua Color YELLOW Yellow Appearance-Urine CLEAR Clear Specific Bradford-Ur 1.007 Low 1.010-1.030 Esterase-Urine 1+ Negative Nitrite NEGATIVE Negative Ivjanswjaabc-Gw-NMC NEGATIVE Negative Protein-Urine NEGATIVE Negative PH-Urine 7.5 5-9 Blood-Urine NEGATIVE Negative Ketones-Urine NEGATIVE Negative Bilirubin-Ur NEGATIVE Negative Glucose-Urine NEGATIVE Negative WBC-Urine 3-5 0-5 RBC-Urine NONE SEEN 0-2 Epith Cells-Ur FEW None Bacteria-Urine TRACE None Laboratory test finding 07/16/2011 Lipase 25 U/L 22-51 Liver Function Panel 07/16/2011 Bilirubin Direct 0.1 mg/dL 0.1-0.5 Indirect Bilirubin 0.7 mg/dL 0.3-1.0 41 Comp Metabolic Panel 07/16/2011 Sodium 141 mmol/L 135-145 Potassium 4.3 mmol/L 3.5-5.0 Chloride 108 mmol/L 101-111 Co2 (Carbon Dioxide) 25.0 mmol/L 22-32 Anion Gap 8.0 mmol/L 2-11 42 Glucose 101 mg/dL High 70-100 BUN 18 mg/dL 6-24 Creatinine 0.9 mg/dL 0.50-1.40 One Over Creatinine 1.11 BUN/Creatinine Ratio 20.0 8-20 Calcium 9.4 mg/dL 8.1-9.9 Total Protein 7.3 GM/DL 6.2-8.1 Albumin 4.2 GM/DL 3.6-5.4 Globulin 3.1 GM/DL 2-4 Albumin/Globulin Ratio 1.4 1-3 Bilirubin Total 0.8 mg/dL 0.4-1.5 43 Alkaline Phosphatase 58 U/L 30-110 Alt (SGPT) 20 U/L 14-54 Ast (Sgot) 23 U/L 12-42 eGFR Non- 64.5 > 60 eGFR 83.0 > 60 44 CBC Auto Diff 07/16/2011 White Blood Count [...] Eosinophils 0 0-0.6 Abs Basophils 0 0-0.2 45 Surgical Pathology 02/28/2011 Surgical Pathology <SEE 46 NOTE> 1 Please note: The following may produce a false positive D Dimer test: - Rheumatoid factor greater than 60 IU/ml - Plasma hemoglobin greater than 0.05 gm/dl - Bilirubin greater than 50 mg/dl - Lipids greater than 1000 mg/dl - FDP greater than 20 ug/ml 2 [facility] Severe Sepsis and Septic Shock Management Bundle Measure requires all lactic acids initially measuring >2.0 mmol/L be repeated. 3 >100 to <200 pg/mL: likely compensated congestive heart failure (CHF) 200 to 400 pg/mL: likely moderate CHF >400 pg/mL: likely moderate to severe CHF 4 Because ethnic data is not always readily [...] 15-29 5 Kidney failure <15 (or dialysis) 5 Acute inflammation: >10.00 6 Because ethnic data is not always readily [...] 15-29 5 Kidney failure <15 (or dialysis) 7 General Doc: [id number] SEE RESULT BELOW Name: CINDY SHAH Vinnie : [address]: Reyes Winters MD Acct: [id number] Unit: [id number] AGE: 62 Location: [facility] Re11/02/17 SEX: F Status: DEP ER SPEC: [id number] ISREAL: 11/02/17-13[address] [facility] DR: Reyes Winters MD REQ: [id number] RECD: 11/02/17161 STATUS: CHRISTINE GOMEZ DR: Yinka Orozco LOG HOOKER _ SOURCE: URINE SPDESC: ORDERED: Urine Culture COMMENTS: [id number] Procedure Result Reported Site Urine Culture Final 11/03/17- 1213 ML No Growth (<1,000 CFU/mL) * ML - MAIN LAB (PSC1) . END OF REPORT * ML=Testing performed at Main Lab DEPARTMENT OF PATHOLOGY, [address] [place] [address] Kamlesh Stark M.D. Director [facility] # [id number] 10 Because ethnic data is not always readily [...] 15-29 5 Kidney failure <15 (or dialysis) 11 Acute inflammation: >10.00 12 Normal Range 180 to 914 Indeterminate Range 145 to 180 Deficient Range <145 13 <1:80 (Negative) REFERENCE VALUE <1:80 (Negative) Test Performed by: [facility] - [address] [address] 14 Nasopharyngeal swab 15 REFERENCE VALUE Not Applicable 16 REFERENCE VALUE Not Applicable ADDITIONAL INFORMATION This test was developed and its performance characteristics determined by [facility] in a manner consistent with CLIA requirements. This test has not been cleared or approved by the U.S. Food and Drug Administration. Test Performed by: [facility] - [address] [address] 17 Acute inflammation: >10.00 18 Because ethnic data is not always readily [...] 15-29 5 Kidney failure <15 (or dialysis) 19 REFERENCE VALUE <=1.0 (Negative) 20 REFERENCE VALUE <20.0 (Negative) 21 Tests for antibodies to dsDNA and VENICE antigens are not performed automatically unless the MARBIN result is > or= 3.0 U. Studies performed at [facility] indicate that positive MARBIN results <3.0 U are rarely accompanied by positive second order tests. Test Performed by: [place] [address] 22 Test Performed by: [place] [address] 23 Serologic response to B. burgdorferi infection is not detected, but cannot rule out early infection during which low or undetectable antibody levels to B. burgdorferi may be present. If clinically indicated, a new serum specimen should be submitted in 7-14 days. Test Performed by: [facility] [place] [address] 24 FASTING 10 HOUR 25 Desirable <150 Borderline high 150-199 High 200-499 Very High >500 26 Desirable <200 Borderline high 200-239 High >239 27 Low <40 Desirable: 40-60 High: >60 28 Desirable: <100 mg/dL Near Optimal: 100-129 mg/dL Borderline High: 130-159 mg/dL High: 160-189 mg/dL Very High: >189 mg/dL 29 Because ethnic data is not always readily [...] 15-29 5 Kidney failure <15 (or dialysis) 30 Unable to calculate due to insufficient protein 31 Because ethnic data is not always readily [...] 15-29 5 Kidney failure <15 (or dialysis) 32 -- REFERENCE VALUE -- 25-HYDROXY D TOTAL (D2+D3) Optimum levels in the healthy population are 20-50, patients with bone disease may benefit from higher levels within this range. Test Performed by: [place] [address] Scrub Technician: Abraham Paulino III, M.D. 33 @Sample frozen by [id number] at 1927 on 08/23/13. 34 Serologic response to B. burgdorferi infection is not detected, but cannot rule out early infection during which low or undetectable antibody levels to B. burgdorferi may be present. If clinically indicated, a new serum specimen should be submitted in 7-14 days. Test Performed by: [place] [address] Scrub Technician: Abraham Paulino III, M.D. 35 -- REFERENCE VALUE -- <0.75 (Negative) 0.75-0.99 (Equivocal) >=1.00 (Positive) Test Performed by: [place] [address] Scrub Technician: Abraham Paulino III, M.D. 36 NON FASTING 37 Anion gap measurement may be of limited value in the presence of any alkalosis, especially in a combined acid base disorder. . 38 A metabolite of Naproxen, O-desmethylnaproxen, has been shown to interfere with the Jendrassik-Kiln method for measuring total bilirubin. Samples from patients who have taken Naproxen have shown spurious elevation in total bilirubin levels. 39 Because ethnic data is not always readily [...] 15-29 5 Kidney failure <15 (or dialysis) 40 FINAL: NO GROWTH DAY 2 (<1,000 CFU/mL) 41 Please note updated reference range, effective 03/28/10 42 Anion gap measurement may be of limited value in the presence of any alkalosis, especially in a combined acid base disorder. . 43 A metabolite of Naproxen, O-desmethylnaproxen, has been shown to interfere with the Jendrassik-Rajni method for measuring total bilirubin. Samples from patients who have taken Naproxen have shown spurious elevation in total bilirubin levels. 44 Because ethnic data is not always readily [...] 15-29 5 Kidney failure <15 (or dialysis) 45 Lymphopenia % 46 ---- RUN DATE: 03/04/11 [facility] NMI LIVE PAGE 1 RUN TIME: 1407 Specimen Inquiry RUN USER: INTERFACE -- Name: PABLOCINDYVALERIO José#: [id number] Status: REG REF Re02/28/11 Age/Sex: 55/F Unit#: [id number] Location: [facility]. : 53 -- Specimen: [id number] SOUT Spec Date: 02/28/[address]: Eladio tamayo MD Spec Type: SURGICAL P Received: 03/03/11-3853 Copies to: Callie [facility] SPECIMEN RANDOM COLON BIOPSIES HISTORY POST-OP [...] 03/04/11 1402 -- -- DEPARTMENT OF PATHOLOGY, [address] [place] [address] [facility] Permit #[id number] Karan Fernandes M.D. Fruit Shipper Dir mariah -- Procedures Date CPT Code Description Status 12/31/2017 73946 ECG Monitor/Recording W/Visual Superimposition Scanning Completed 10/27/2017 Mammogram Completed 10/07/2017 76074 Nerve Conduction 09-10 Studies Completed 10/07/2017 92160 Needle Electromyography Complete, Five Or More Muscles Completed Studied 06/06/2015 68888 Cardiac Event Monitor Completed 06/06/2015 01497 Cardiac Event Monitor Completed 06/04/2015 32157 Stress Test Completed 06/04/2015 28563 Myocardial Perfusion Imaging Tomographic (Spect) Completed Multiple Studies 05/30/2015 74309 ECHO Transthoracic, Real-Time 2D With Doppler And Color Completed Flow 05/24/2015 13138 Holter Monitoring 24 HR New Completed 05/22/2015 60695 EKG Tracing & Interpretation Completed 03/31/2014 25030 Nerve Conduction 07-08 Studies Completed 06/12/2011 62249 Rad Exam; Foot Limited Completed 05/22/2011 02797 FX Treatment Closed Phalanx Other Than Great Toe W/O Completed Manip 02/28/2011 Colonoscopy Completed 04/24/2010 Bone Mineral Density Test Completed 04/24/2010 Mammogram Completed 10/06/2008 70335 EKG Tracing & Interpretation Completed Encounters Type Date Location Provider CPT E/M Dx Office Visit 10/02/2017 [facility] Karley Farmer M.D. 55319 R94.02 9:00a [facility] R20.2 R53.1 G50.1 M54.2 M54.5 G56.01 Office Visit 08/06/2017 11:40a [facility] [place] [address] G50.1 Radha R25.2 R68.2 E55.9 Office Visit 07/29/2017 11:20a [facility] Aj Mahmood, 50712 M54.2 Ricci Leblanc M.D. Office Visit 06/22/2017 9:45a [facility] Isa Casanova M.D. 85458 M25.561 Avery M25.461 S83.241D Office Visit 06/05/2017 2:00p [facility] Isa Casanoav 73864 S83.241D Avery Russo M25.561 M54.31 Office Visit 04/27/2017 1:15p [facility] Daron Chirinos 17886 S83.241D Of Avery Campbell MD Office Visit 03/16/2017 1:15p [facility] Daron Chirinos 56357 S83.241D Of Avery Campbell MD Office Visit 02/26/2017 9:00a [facility] Daron Chirinos 07233 M25.561 Of Avery Campbell MD Office Visit 01/07/2017 9:20a [facility] Yinka Orozco, LOG HOOKER 73138 M25.561 - [place] M25.50 R53.83 Office Visit 08/04/2016 9:00a [facility] - Yinka Orozco, JENNIFFER 67447 E04.1 [place] Z13.220 Z13.1 Office Visit 07/04/2015 10:00a [facility] Valerioalyssa Vera, 99280 R00.2 Dutch Russo, [facility] Office Visit 05/22/2015 2:00p [facility] Valerioalyssa Vera, 05921 786.50 Dutch Russo, [facility], [facility] 785.1 Office Visit 12/25/2014 8:00a [facility] Of Irwin Rubio M.D. 35801 727.09 C.M.ALuis 715.96 Office Visit 07/19/2014 3:00p [facility] [place] [address] 355.6 C.M.ALuis Russo Office Visit 06/15/2014 2:00p [facility] [place] 42047 355.6 C.M.Bertha Russo Office Visit 01/17/2014 2:30p [facility] Reyes Morrison, 66155 794.09 Services Of Dutch Russo 782.0 Office Visit 12/20/2013 3:30p [facility] Reyes Morrison, 76246 782.0 Services Of Dutch Russo 794.09 Office Visit 11/29/2013 3:00p [facility] Callie Perry, N.P. 84678 461.9 - [place] Office Visit 11/21/2013 11:20a [facility] Callie Perry, N.P. 06206 461.9 - [place] Office Visit 10/04/2013 4:00p [facility] Callie Perry, N.P. 71003 599.70 - [place] 791.0 724.5 Office Visit 08/23/2013 1:20p [facility] Callie Perry, N.P. 13778 719.49 - [place] 789.03 728.87 Office Visit 09/06/2012 11:20a [facility] Callie Perry, N.P. 41282 530.81 - [place] Office Visit 05/07/2012 1:40p [facility] Nery Wright M.D. 74851 784.0 - [place] Office Visit 04/09/2012 3:00p [facility] Callie Varn, N.P. 13468 726.32 - [place] 354.0 719.47 244.9 Office Visit 01/13/2012 2:00p [facility] Services Yosi Crooks, 87744 723.0 [facility] Karan Office Visit 10/29/2011 2:00p [facility] - Callie Varn, 69328 337.00 [place] N.P. Office Visit 06/11/2011 11:40a DO Not Use Callie Varn, 26776 723.1 Construction Person-[place] N.P. Office Visit 03/24/2011 3:00p DO Not Use Callie Varn, 08154 300.00 Construction Person-[place] N.P. 780.93 Office Visit 12/30/2010 11:00a DO Not Use Callie Varn, 85857 789.03 Construction Person-[place] N.P. Office Visit 07/31/2010 10:15a DO Not Use Pallavi Cordova M.D., 76701 729.5 Construction Person-[place] FACP 726.31 Office Visit 04/17/2010 10:15a DO Not Use Callie Varn, 79096 V72.31 Construction Person-[place] N.P. v72.31 V06.1 v06.1 Office Visit 11/13/2009 11:30a DO Not Use Callie Varn, 60187 789.07 Construction Person-[place] N.P. Office Visit 10/31/2009 8:45a DO Not Use Callie Varn, 54685 240.9 Construction Person-[place] N.P. 241.9 Office Visit 10/17/2009 3:15p DO Not Use Callie Perry, 22839 240.9 Construction Person-[place] N.P. Office Visit 09/13/2009 4:00p DO Not Use Pallavi Cordova M.D., 94300 786.2 Construction Person-[place] FACP Office Visit 08/24/2009 4:00p DO Not Use Pallavi Cordova M.D., 98102 786.50 Construction Person-[place] FACP 786.2 Office Visit 03/16/2009 2:15p DO Not Use Callie Perry, 64365 599.0 Construction Person-[place] N.P. Office Visit 03/01/2009 1:15p DO Not Use Pallavi Cordova M.D., 11566 599.0 Construction Person-[place] FACP Office Visit 01/03/2009 1:00p DO Not Use Pallavi Cordova M.D., 38939 300.00 Construction Person-[place] FACP Office Visit 11/09/2008 1:30p DO Not Use Pallavi Cordova M.D., 82333 272.4 Construction Person-[place] FACP V62.82 Office Visit 10/06/2008 3:00p DO Not Use Construction Person-[place] Pallavi Cordova 59012 V72.31 Karan, FACP 780.79 272.0 785.1 Plan of Care Future Appointment(s):01/19/2018 1:30 pm - Valerio Vera M.D., BRAYDEN, JOE at [facility]01/18/2018 1:30 pm - Valerio Vera M.D., FACParis, JOE at [facility]01/18/2018 1:00 pm - Ica ECHO Schedule at [facility]01/08/2018 8:30 am - Karley Farmer M.D. at [facility]12/31/2017 - Yinka Orozco, NPR00.2 PalpitationsComments: For your palpitations I am ordering some labs and would like you to do a holter monitor. This is a device that you will wear for 24 hours that will monitor your hearts activity. ~B_If you have palpitations that are not subsiding or are associated with singificant blurred vision, dizziness, shortness of breath, nausea, or chest pain go to the ER ~[id number] Shortness of breathNew Orders: Stress Test, Exercise NuclearComments:If your symptoms worsen, seek medical [id number] CoughNew Medication:Doxycycline Hyclate 100 mgComments:I am prescribing an antibiotic today. If your symptoms worsen you should return to the ER.Z13.220 Encounter for screening for lipoid disorders
[2018-01-19 17:16] VITALS: BP 124/77
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
== END 2018-01-19 18:45 | disposition home or self-care (01) ==
LOC: UCEAST 16:59
DX: K12.0 Recurrent oral aphthae (principal); Z88.5 Allergy status to narcotic agent; Z88.6 Allergy status to analgesic agent; Z88.1 Allergy status to other antibiotic agents; Z91.041 Radiographic dye allergy status
CPT/HCPCS: 99211; G0463

== ENCOUNTER 2018-07-12 14:42 | Emergency (ER) | payer OTHER ==
--- OUTSIDE RECORDS SUMMARY | 2018-07-12 14:47 | XMS REPORT ---
:1955 External Reference #:[id number] Author Organization [facility] Address [address] [place] [place] [address] [place] [address] Phone [phone] Care Team Providers Name Role Phone Loree Doll MD Primary Care Physician Unavailable Payers Type Date Identification Numbers Payment Provider Subscriber Commercial Effective: Policy Number: [id number] Mcgregor/Totalcare Cindy Shah 2009 Medicaid PayID: [id number] [address] [address] [place] [address] Medigap Part B Effective: Policy Number: BS Facets Cindy Shah 2012 [id number] Expires: 2013 PayID: [id number] [address] [address] [place] [address] Commercial Expires: 2012 Policy Number: Molinatotalcare Cindy [place] [id number] Essential Pablo PayID: [id number] [address] [address] [place] [address] Problems Date Description Provider Status Onset: 05/22/2011 Pure hypercholesterolemia Callie Perry, N.P. Active Onset: 05/22/2011 Goiter Callie ePrry, N.P. Active Onset: 05/22/2015 Chest pain Valerio Vera M.D., [facility], Active FASNC Onset: 05/22/2015 Palpitations Valerio Vera M.D., [facility], Active FASNC Onset: 06/05/2017 Sciatica Isa Casanova M.D. Active Onset: 07/09/2018 Tendon contracture Jeremie Mendez MD Active Onset: 07/09/2018 Metatarsalgia Jeremie Mendez MD Active Onset: 01/19/2018 Dyspnea Valerio Vera M.D., [facility], Active FASNC Family History Date Family Member(s) Problem(s) Comments General Heart Disease General Cancer General Thyroid Disease : (age 62 Father due to Cancer, Heart Disase, [place] (60) Years) Colon Father Colon Cancer age 62 Father CA : (age 64 Mother due to Cancer, Heart Disease, [place] (30's) Years) Lung Mother Lung Cancer 'and bone' , smoker, age 64 Mother Uterine Cancer First Son Adopted Siblings 6 4 Brothers, 2 Sisters 1 Sister with thyroid cancer and hypothyroidism 1 sister with jesus's thyroiditis, 1 brother with mariposa, 1 brother age 59 of [place], 1 brother stroke and HTN in 70s (States all males have HTN, two brothers diabetes, 4 brothers heart disease) Multiple sclerosis in maternal aunt and two nieces. 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 2017 ) Doxycycline 12/31/ Hx Capsules 100mg 20cap one R05 Yinka Hyclate 2017 - s tablet JENNIFFER Orozco twice 2017 daily for 10 days. Doxycycline 08/25/ Hx Capsules 100mg 20cap one Yinka Hyclate 2016 - s tablet Ernesto, SOW FARM MANAGER 09/04/ twice 2016 daily for 10 days. Voltaren 06/01/ Hx Gel 1% 300gm apply 4 Yinka 2016 - grams of Ernesto, SOW FARM MANAGER 06/21/ gel twice 2016 daily to the affected areas for 7 days. Voltaren 01/07/ Hx Gel 1% 300gm apply 4 M25.561 Yinka 2016 - grams of Ernesto, SOW FARM MANAGER 08/28/ gel twice 2016 daily to the affected areas for 7 days. Doxycycline 11/29/ Hx Tablets 100mg 20tab 1 po bid 461.9 Callie Hyclate 2013 - s x 10 days Varn, 12/09/ N.P. 2013 Fluconazole 11/29/ Hx Tablets 150mg 2tabs one by 461.9 Callie 2013 - mouth january Varn, 12/13/ repeat in N.P. 2014 3 days as needed Fluconazole 11/24/ Hx Tablets 150mg 2tabs one by Callie 2013 - mouth january Varn, 11/29/ repeat in N.P. 2013 3 days as needed Azithromycin 11/21/ Hx Tablets 250mg 6tabs two tabs 461.9 Callie 2013 - day one, Varn, 11/29/ one daily N.P. 2013 until gone No Active 08/23/ Hx Unknown Medications 2012 - 2013 Amoxicillin/Clavu 05/09/ Hx Tablets 875-125mg 20tab one Nery lanate Potassium 2011 - s tablet by Kyle, 08/23/ mouth M.D. 2012 twice daily for 10 days Cyclobenzaprine 06/11/ Hx Tablets 5mg 30tab 1 by 723.1 Pallavi HCL 2010 - s mouth at Tasha, 10/29/ bedtime M.D., 2011 as needed FACP for back pain Physical Therapy 07/31/ Hx Orthoses Pallavi 2009 - Tasha, 12/30/ Karan, 2010 FACP Nasacort Aq / Hx Aerosol 55mcg/Act 1unit use 1 Pallavi 0000 - s spray ea Tasha, 07/31/ nostril Karan, 2009 daily as FACP needed Valerian Root / Hx Powder 1/2 tsp Unknown 0000 - in water nightly 2017 Milk Thistle / Hx Capsules 1 cap po Unknown Extract 0000 - daily 2014 Vitamin D3 / Hx Capsules 2000Unit 1 by Unknown 0000 - mouth 08/04/ every day 2015 Shelby And / Hx Once Unknown Nettle Tea 0000 - Daily 2015 Arnica / Hx Unknown 0000 - 2017 Medications Administered in Office Medication Date Status Form Strength Qnty SIG Indications Ordering Provider Technetium TC Administered Injection Valerio Garrison [id number] 015 Reji Vera M.D., FAC, Per Unit Dose FASNC Up To 40 Millicuries Immunizations CPT Code Status Date Vaccine Lot # [id number] Given 04/17/2010 Tdap - Tetanus/Diptheria/Acellular Pertussis Vital Signs Date Vital Result Comment 07/09/2018 Height 67 inches 5'7" Weight 192.00 lb Heart Rate 68 /min Respiratory Rate 18 /min Body Temperature 97.2 F Pain Level 7 BMI (Body Mass Index) 30.1 kg/m2 05/12/2018 Height 67 inches 5'7" Weight 189.00 lb Heart Rate 68 /min BP Systolic Sitting 112 mmHg BP Diastolic Sitting 78 mmHg Respiratory Rate 16 /min BMI (Body Mass Index) 29.6 kg/m2 01/19/2018 Height 67 inches 5'7" Weight 191.00 lb No shoes Heart Rate 64 /min BP Systolic Sitting 108 mmHg Lue lrg cuff BP Diastolic Sitting 70 mmHg Lue lrg cuff BP Systolic Standing 118 mmHg Lue lrg cuff BP Diastolic Standing 76 mmHg Lue lrg cuff Respiratory Rate 16 /min BMI (Body Mass Index) 29.9 kg/m2 Ejection Fraction 50-55% 01/14/2018-echo 01/08/2018 Height 67 inches 5'7" Weight 190.00 [...] Test Date Test Result H/L Range Note Vitamin B12 And Folate Serum 05/28/2018 Vitamin B12 448 pg/mL 180-914 1 Folic Acid (Folate) 9.65 ng/mL >3.99 Laboratory test finding 05/28/2018 Vitamin D Total 25(Oh) 28.5 ng/mL 20- 50 Ssa/SSB Abs Igg 01/15/2018 SS-A/Ro Antibody <0.2 U 2 SS-B/La Antibody <0.2 U 3 CBC Auto Diff 01/01/2018 White Blood Count [...] Red Blood Cells % 0.1 Laboratory test finding 01/01/2018 D Dimer Quantitative < 200 ng/mL Less Than 230 4 Troponin-I (TnI) 0.00 ng/mL <0.04 5 C Reactive Protein 5.47 mg/L High < 5.00 6 Lipid Profile (Trig/Chol/HDL) 01/01/2018 Triglycerides 116 mg/dL 7 Cholesterol 201 mg/dL 8 HDL Cholesterol 48.6 mg/dL 9 LDL Cholesterol 129 mg/dL 10 CBC Auto Diff 12/23/2017 White Blood Count [...] Quantitative < 200 ng/mL Less Than 230 11 Lactic Acid 1.2 mmol/L 0.5-2.0 12 B-Type Natriuretic Peptide BNP 22 pg/mL 13 Troponin-I (TnI) 0.00 ng/mL <0.04 CKMB 12/23/2017 [...] Egfr Non- 65.8 >60 Egfr 84.6 >60 14 Laboratory test finding 12/23/2017 Magnesium 2.2 mg/dL 1.9-2.7 Lipase 28 U/L 11.0-82.0 Creatine Kinase(CK) 53 U/L 10-223 C Reactive Protein 31.15 mg/L High < 5.00 15 TSH (Thyroid Stim Horm) 1.20 mcIU/mL 0.34-5.60 Basic Metabolic Panel 11/02/2017 Sodium 139 mmol/L 133-145 Potassium 4.8 mmol/L 3.5-5.0 Chloride 105 mmol/L 101-111 Co2 Carbon Dioxide 28 mmol/L 22-32 Anion Gap 6 mmol/L 2-11 Glucose 92 mg/dL 70-100 Blood Urea Nitrogen 16 mg/dL 6-24 Creatinine 0.86 mg/dL 0.51-0.95 BUN/Creatinine Ratio 18.6 8-20 Calcium 9.4 mg/dL 8.6-10.3 Egfr Non- 66.6 >60 Egfr 85.7 >60 16 Poc Urinalysis 11/02/2017 Poc Glucose, Urine Negative Negative Poc Bilirubin, Urine Negative Negative Poc Ketone, Urine Negative Negative Poc Specific [place], Urine 1.020 1.010-1.030 Poc Blood, Urine Negative Negative Poc pH, Urine 5.5 5-9 Poc Protein, Urine Negative Negative Poc Urobilinogen, Urine 0.2 Negative Poc Nitrite, Urine Negative Negative Poc Leukocytes, Urine Negative Negative Poc Color, Urine Yellow Poc Clarity, Urine Clear 17 Urine Culture And 11/02/2017 Urine Culture SEE RESULT BELOW 18, 19 Sensitivities CBC Auto Diff 08/06/2017 White Blood [...] Egfr Non- 70.4 >60 Egfr 90.6 >60 20 Laboratory test finding 08/06/2017 Erythrocyte Sed Rate 11 mm/Hr 0-30 C Reactive Protein 3.50 mg/L < 5.00 21 Magnesium 2.1 mg/dL 1.9-2.7 Ferritin 146.4 ng/mL 11-307 Vitamin B12 392 pg/mL 180-914 22 Nuclear AB (Marbin) By Ifa Igg <1:80 (Negative) 23 Vitamin D Total 25(Oh) 21.1 ng/mL 20-50 Bordetella PCR 05/21/2017 Bordetella Source Nasopharyngeal s <SEE NOTE> 24 Bordetella pertussis PCR Negative 25 Bordetella parapertussis PCR Negative 26 Comp Metabolic Panel 01/07/2017 Sodium 140 mmol/L [...] Egfr Non- 58.9 >60 Egfr 75.7 >60 27 Laboratory test finding 01/07/2017 TSH (Thyroid Stim Horm) 1.29 mcIU/mL 0.34-5.60 CBC Auto Diff 01/07/2017 White Blood Count [...] Red Blood Cells % 0.1 Laboratory test finding 01/07/2017 Rheumatoid Factor <15 IU/mL <15 28 Lyme Disease Serology Negative Negative 29 Connective Tissue Panel 01/07/2017 Anti-Nuclear Antibody 0.3 U 30 Cyclic Citrullinated Peptide <15.6 U 31 Interpretation See Comment 32 Laboratory test finding 01/07/2017 Erythrocyte Sed Rate 15 mm/Hr 0-30 C Reactive Protein 4.26 mg/L < 5.00 33 Comp Metabolic Panel 09/05/2016 Sodium 138 mmol/L [...] Egfr Non- 66.9 >60 Egfr 86.0 >60 34 Lipid Profile (Trig/Chol/HDL) 09/05/2016 Triglycerides 84 mg/dL 35 Cholesterol 233 mg/dL 36 HDL Cholesterol 58.4 mg/dL 37 LDL Cholesterol 158 mg/dL 38 Laboratory test finding 09/05/2016 TSH (Thyroid Stim Horm) 1.34 mcIU/mL 0.34-5.60 39 Creatinine Clearance 10/10/2013 Urine Random Creatinine 52.2 mg/dL Creatinine 0.9 mg/dL 0.5-1.4 Creatinine Clearance 99 mL/min 88-128 Urine Collection Time 24 Urine Total Volume 2450 mL Total Protein 24HR Urine 10/10/2013 Urine Random Total Protein < 6.0 mg/dL Urine Total Protein/24HR (SEE NOTE) mg/24Hr 0-165 40 Comp Metabolic Panel 10/06/2013 Sodium 142 mmol/L [...] Egfr Non- 73.4 >60 Egfr 94.4 >60 41 Ua Routine 10/04/2013 Ua Specific [place] 1.010 Ua PH 5 Ua Color yellow Ua Appera clear Ua WBC negative Ua Protein trace Ua Glucose negative Ua Ketones sm Ua Bilirubin sm Ua Urobilinogen negative Ua Nitrite negative Ua Occult Blood negative Vitamin D, 25 Hydroxy 08/23/2013 25-Hydroxy Vitamin D2 <4.0 ng/mL 25-Hydroxy Vitamin D3 28 ng/mL 25-Hydroxy Vitamin D Total 28 ng/mL 42 Laboratory test finding 08/23/2013 C Reactive Protein < 0.5 mg/dL Less than 0.5 Erythrocyte Sed Rate 17 mm/Hr 0-30 Marbin (Anti-Nuclear AB) Screen Negative Negative 43 Lyme Disease Serology Negative Negative 44 Vitamin B12 497 pg/mL 180-914 TSH (Thyroid Stimulating Horm) 0.75 miu/mL 0.34-5.60 Laboratory test finding 09/06/2012 Helicobacter pylori IgG <0.75 index 45 Ab CBC With Manual Diff 09/06/2012 White [...] 0-0.6 Abs Basophils 0.1 0-0.2 Laboratory test finding 05/07/2012 C Reactive Protein < 0.5 mg/dL Less Than 0.5 Erythrocyte Sed Rate 17 MM/HR 0-30 Laboratory test finding 04/09/2012 Thyroxine Free 0.93 ng/dL 0.61-1.24 TSH 0.94 MIU/ML 0.34-5.60 CBC With Manual Diff 10/29/2011 White Blood Count 5.4 CUMM 4.8-10.8 46 Red Cell Count 4.78 CUMM 4.2-5.4 46 Hemoglobin 14.4 g/dL 12.0-16.0 46 Hematocrit 42 % 35-47 46 Mean Corpuscular Volume 88 um3 79-97 46 Mean Corpuscular Hemoglob 30 pg 27-31 46 Mean Corpuscular HGB Cone 34 g/dL 32-36 46 Redcell Distribution WDTH 13 % 10.5-15 46 Platelet Count 178 CUMM 150-450 46 Mean Platelet Volume 9.2 um3 7.4-10.4 46 Polysegmented Neutrophil 68 % 38-83 46 Lymphocyte 29 % 25-47 46 Monocyte 1 % 0-13 46 Eosinophil 2 % 0-6 46 Absolute Neutrophil Count 3.6 46 RBC Morphology NORMAL 46 Comp Metabolic Panel 10/29/2011 Sodium 140 mmol/L 135-145 46 Potassium 4.1 mmol/L 3.5-5.0 46 Chloride 104 mmol/L 101-111 46 Co2 (Carbon Dioxide) 27.0 mmol/L 22-32 46 Anion Gap 9.0 mmol/L 2-11 46, 47 Glucose 97 mg/dL 70-100 46 BUN 17 mg/dL 6-24 46 Creatinine 0.8 mg/dL 0.50-1.40 46 One Over Creatinine 1.25 46 BUN/Creatinine Ratio 21.3 High 8-20 46 Calcium 9.6 mg/dL 8.1-9.9 46 Total Protein 7.1 GM/DL 6.2-8.1 46 Albumin 4.4 GM/DL 3.6-5.4 46 Globulin 2.7 GM/DL 2-4 46 Albumin/Globulin Ratio 1.6 1-3 46 Bilirubin Total 0.6 mg/dL 0.4-1.5 46, 48 Alkaline Phosphatase 62 U/L 30-110 46 Alt (SGPT) 18 U/L 14-54 46 Ast (Sgot) 15 U/L 12-42 46 eGFR Non- 73.9 > 60 46 eGFR 95.1 > 60 46, 49 Laboratory test finding 10/29/2011 Vitamin B12 471 pg/mL 180-914 46 CBC Auto Diff 07/16/2011 White Blood Count [...] Eosinophils 0 0-0.6 Abs Basophils 0 0-0.2 50 Comp Metabolic Panel 07/16/2011 Sodium 141 mmol/L 135-145 Potassium 4.3 mmol/L 3.5-5.0 Chloride 108 mmol/L 101-111 Co2 (Carbon Dioxide) 25.0 mmol/L 22-32 Anion Gap 8.0 mmol/L 2-11 51 Glucose 101 mg/dL High 70-100 BUN 18 mg/dL 6-24 Creatinine 0.9 mg/dL 0.50-1.40 One Over Creatinine 1.11 BUN/Creatinine Ratio 20.0 8-20 Calcium 9.4 mg/dL 8.1-9.9 Total Protein 7.3 GM/DL 6.2-8.1 Albumin 4.2 GM/DL 3.6-5.4 Globulin 3.1 GM/DL 2-4 Albumin/Globulin Ratio 1.4 1-3 Bilirubin Total 0.8 mg/dL 0.4-1.5 52 Alkaline Phosphatase 58 U/L 30-110 Alt (SGPT) 20 U/L 14-54 Ast (Sgot) 23 U/L 12-42 eGFR Non- 64.5 > 60 eGFR 83.0 > 60 53 Liver Function Panel 07/16/2011 Bilirubin Direct 0.1 mg/dL 0.1-0.5 Indirect Bilirubin 0.7 mg/dL 0.3-1.0 54 Laboratory test finding 07/16/2011 Lipase 25 U/L 22-51 Urinalysis W/Microscopic 07/16/2011 Ua Color YELLOW Yellow Appearance-Urine CLEAR Clear Specific [place]-Ur 1.007 Low 1.010-1.030 Esterase-Urine 1+ Negative Nitrite NEGATIVE Negative [id number] NEGATIVE Negative Protein-Urine NEGATIVE Negative PH-Urine 7.5 5-9 Blood-Urine NEGATIVE Negative Ketones-Urine NEGATIVE Negative Bilirubin-Ur NEGATIVE Negative Glucose-Urine NEGATIVE Negative WBC-Urine 3-5 0-5 RBC-Urine NONE SEEN 0-2 Epith Cells-Ur FEW None Bacteria-Urine TRACE None Urine Culture & Sensitivi 07/16/2011 Urine Culture Sensitivi NG 55 Surgical Pathology 02/28/2011 Surgical Pathology 56 <SEE NOTE> 1 Normal Range 180 to 914 Indeterminate Range 145 to 180 Deficient Range <145 2 REFERENCE VALUE <1.0 (Negative) 3 REFERENCE VALUE <1.0 (Negative) Test Performed by: [address] [address] 4 Please note: The following may produce a false positive D Dimer test: - Rheumatoid factor greater than 60 IU/ml - Plasma hemoglobin greater than 0.05 gm/dl - Bilirubin greater than 50 mg/dl - Lipids greater than 1000 mg/dl - FDP greater than 20 ug/ml 5 FASTING 10 HOUR 6 Acute inflammation: >10.00 7 Desirable: <150 Borderline High: 150-199 High: 200-499 Very High: >500 8 Desirable: <200 Borderline High: 200-239 High: >239 9 Low: <40 Desirable: 40-60 High: >60 10 Desirable: <100 Near Optimal: 100-129 Borderline High: 130-159 High: 160-189 Very High: >189 11 Please note: The following may produce a false positive D Dimer test: - Rheumatoid factor greater than 60 IU/ml - Plasma hemoglobin greater than 0.05 gm/dl - Bilirubin greater than 50 mg/dl - Lipids greater than 1000 mg/dl - FDP greater than 20 ug/ml 12 [facility] Severe Sepsis and Septic Shock Management Bundle Measure requires all lactic acids initially measuring >2.0 mmol/L be repeated. 13 >100 to <200 pg/mL: likely compensated congestive heart failure (CHF) 200 to 400 pg/mL: likely moderate CHF >400 pg/mL: likely moderate to severe CHF 14 Because ethnic data is not always readily [...] 15-29 5 Kidney failure <15 (or dialysis) 15 Acute inflammation: >10.00 16 Because ethnic data is not always readily [...] 15-29 5 Kidney failure <15 (or dialysis) 17 Orthodontist Vice President: [id number] 19 SEE RESULT BELOW Name: PABLOCINDY Vinnie : [address]: Reyes Winters MD Acct: [id number] Unit: [id number] AGE: 62 Location: [facility] Re11/02/17 SEX: F Status: DEP ER SPEC: [id number] ISREAL: 11/02/17-[address] [facility] [address]: Reyes Winters MD REQ: [id number] RECD: 11/02/17 STATUS: CHRISTINE GOMEZ DR: Yinka Orozco SOW FARM MANAGER _ SOURCE: URINE SPDESC: ORDERED: Urine Culture COMMENTS: [id number] Procedure Result Reported Site Urine Culture Final 11/03/17- 1213 ML No Growth (<1,000 CFU/mL) * ML - MAIN LAB ([facility]) . END OF REPORT * ML=Testing performed at Main Lab DEPARTMENT OF PATHOLOGY, [address] [place] [address] Kamlesh Stark M.D. Director [facility] # [id number] 20 Because ethnic data is not always readily [...] 15-29 5 Kidney failure <15 (or dialysis) 21 Acute inflammation: >10.00 22 Normal Range 180 to 914 Indeterminate Range 145 to 180 Deficient Range <145 23 <1:80 (Negative) REFERENCE VALUE <1:80 (Negative) Test Performed by: [facility] - [address] [address] 24 Nasopharyngeal swab 25 REFERENCE VALUE Not Applicable 26 REFERENCE VALUE Not Applicable ADDITIONAL INFORMATION This test was developed and its performance characteristics determined by [facility] in a manner consistent with CLIA requirements. This test has not been cleared or approved by the U.S. Food and Drug Administration. Test Performed by: [address] [address] 27 Because ethnic data is not always readily [...] 15-29 5 Kidney failure <15 (or dialysis) 28 Test Performed by: [address] [address] 29 Serologic response to B. burgdorferi infection is not detected, but cannot rule out early infection during which low or undetectable antibody levels to B. burgdorferi may be present. If clinically indicated, a new serum specimen should be submitted in 7-14 days. Test Performed by: [facility] [place] [facility] [address] [place] [address] 30 REFERENCE VALUE <=1.0 (Negative) 31 REFERENCE VALUE <20.0 (Negative) 32 Tests for antibodies to dsDNA and VENICE antigens are not performed automatically unless the MARBIN result is > or= 3.0 U. Studies performed at [facility] indicate that positive MARBIN results <3.0 U are rarely accompanied by positive second order tests. Test Performed by: [facility] [address] [place] [address] 33 Acute inflammation: >10.00 34 Because ethnic data is not always readily [...] 15-29 5 Kidney failure <15 (or dialysis) 35 Desirable <150 Borderline high 150-199 High 200-499 Very High >500 36 Desirable <200 Borderline high 200-239 High >239 37 Low <40 Desirable: 40-60 High: >60 38 Desirable: <100 mg/dL Near Optimal: 100-129 mg/dL Borderline High: 130-159 mg/dL High: 160-189 mg/dL Very High: >189 mg/dL 39 FASTING 10 HOUR 40 Unable to calculate due to insufficient protein 41 Because ethnic data is not always readily [...] 15-29 5 Kidney failure <15 (or dialysis) 42 -- REFERENCE VALUE -- 25-HYDROXY D TOTAL (D2+D3) Optimum levels in the healthy population are 20-50, patients with bone disease may benefit from higher levels within this range. Test Performed by: [place] [address] Soil Surveyor: Abraham Paulino III, M.D. 43 @Sample frozen by [id number] at 1927 on 08/23/13. 44 Serologic response to B. burgdorferi infection is not detected, but cannot rule out early infection during which low or undetectable antibody levels to B. burgdorferi may be present. If clinically indicated, a new serum specimen should be submitted in 7-14 days. Test Performed by: [address] [address] Soil Surveyor: Abraham Paulino III, M.D. 45 -- REFERENCE VALUE -- <0.75 (Negative) 0.75-0.99 (Equivocal) >=1.00 (Positive) Test Performed by: [address] [address] Soil Surveyor: Abraham Paulino III, M.D. 46 NON FASTING 47 Anion gap measurement may be of limited value in the presence of any alkalosis, especially in a combined acid base disorder. . 48 A metabolite of Naproxen, O-desmethylnaproxen, has been shown to interfere with the Jendrassik-Rajni method for measuring total bilirubin. Samples from patients who have taken Naproxen have shown spurious elevation in total bilirubin levels. 49 Because ethnic data is not always readily [...] 15-29 5 Kidney failure <15 (or dialysis) 50 Lymphopenia % 51 Anion gap measurement may be of limited value in the presence of any alkalosis, especially in a combined acid base disorder. . 52 A metabolite of Naproxen, O-desmethylnaproxen, has been shown to interfere with the Jendrassik-[place] method for measuring total bilirubin. Samples from patients who have taken Naproxen have shown spurious elevation in total bilirubin levels. 53 Because ethnic data is not always readily [...] 15-29 5 Kidney failure <15 (or dialysis) 54 Please note updated reference range, effective 03/28/10 55 FINAL: NO GROWTH DAY 2 (<1,000 CFU/mL) 56 ---- RUN DATE: 03/04/11 [facility] NMI LIVE PAGE 1 RUN TIME: 1407 Specimen Inquiry RUN USER: INTERFACE -- Name: CINDY SHAH Status: REG REF Re02/28/11 Age/Sex: 55/F Unit#: [id number] Location: [facility] : 53 -- Specimen: [id number] [id number] Spec Date: 02/28/[address]: Eladio tamayo MD Spec Type: SURGICAL P Received: 03/03/11-0423 Copies to: Callie Perry [facility] SPECIMEN RANDOM COLON BIOPSIES HISTORY POST-OP [...] 03/04/11 1402 -- -- DEPARTMENT OF PATHOLOGY, [address] [place] [address] [facility] Permit #[id number] Kamlesh Stark M.D. Director Tin Hall M.D. Hog Trader Dir mariah -- Procedures Date CPT Code Description Status Comment 01/19/2018 58350 EKG Tracing & Interpretation Completed 01/18/2018 16426 ECHO Stress Test Incl Perf Completed Contiuous ekg Monitoring W/Phys Superv 01/14/2018 00683 ECHO Transthorasic Realtime Completed 2D W Doppler & Color Flow Hosp 01/08/2018 Diabetic Retinal Eye Exam Completed Document: 01/08/18 - Ophthalmology 01/06/2018 32668 Holter Monitor Review (24 Completed hr)dr review & interp only 12/31/2017 22265 ECG Monitor/Recording Completed W/Visual Superimposition Scanning 10/27/2017 Mammogram Completed 10/07/2017 12741 Nerve Conduction 09-10 Completed Studies 10/07/2017 55304 Needle Electromyography Completed Complete, Five Or More Muscles Studied 08/11/2017 Diabetic Retinal Eye Exam Completed Document: 08/11/17 - Consult Ophthalmology-Fergerso Document: 08/11/17 - Ophthalmology 08/11/2016 Diabetic Retinal Eye Exam Completed Document: 08/11/16 - Consult Ophthalmology - Venkatesh 06/06/2015 28992 Cardiac Event Monitor Completed 06/06/2015 74408 Cardiac Event Monitor Completed 06/04/2015 77725 Myocardial Perfusion Imaging Completed Tomographic (Spect) Multiple Studies 06/04/2015 00518 Stress Test Completed 05/30/2015 89111 ECHO Transthoracic, Real-Time Completed 2D With Doppler And Color Flow 05/24/2015 62610 Holter Monitoring 24 HR New Completed 05/22/2015 62785 EKG Tracing & Interpretation Completed 03/31/2014 25238 Nerve Conduction 07-08 Completed Studies 06/12/2011 73982 Rad Exam; Foot Limited Completed 05/22/2011 74210 FX Treatment Closed Phalanx Completed Other Than Great Toe W/O Manip 02/28/2011 Colonoscopy Completed 04/24/2010 Bone Mineral Density Test Completed 04/24/2010 Mammogram Completed 10/06/2008 03485 EKG Tracing & Interpretation Completed Encounters Type Date Location Provider CPT E/M Dx Office Visit 07/09/2018 9:00a [facility] [place] [address] M77.41 C.M.A. M77.42 M67.01 M67.02 Office Visit 05/12/2018 8:30a [facility] Karley Farmer, 43882 G56.03 Karan R41.89 R94.02 Office Visit 01/19/2018 1:30p [facility] Valerio Vera, 46066 R06.02 Dutch Russo, FACC, [facility] Office Visit 01/08/2018 8:30a [facility] Karleybelkis Farmer, 56754 R94.02 Services Of Dutch Russo G56.03 M54.31 Office Visit 12/31/2017 2:20p [facility] [place] [address] R00.2 Edwards R05 R06.02 Z13.220 Office Visit 10/02/2017 9:00a [facility] Karley Farmer M.D. 72773 R94.02 Services Of [facility] R20.2 R53.1 G50.1 M54.2 M54.5 G56.01 Office Visit 08/06/2017 11:40a [facility] [place] [address] G50.1 Radha R25.2 R68.2 E55.9 Office Visit 07/29/2017 11:20a [facility] Internal Medicine Aj Mahmood, 09859 M54.2 - Deana Russo Office Visit 06/22/2017 9:45a [facility] Isa Casanova M.D. 40178 M25.561 Avery M25.461 S83.241D Office Visit 06/05/2017 2:00p [facility] Isa Casanova 10097 S83.241D Avery Russo M25.561 M54.31 Office Visit 04/27/2017 1:15p [facility] Daron Chirinos [address] S83.241D Of Avery Campbell MD Office Visit 03/16/2017 1:15p [facility] Daron Chirinos [address]442 S83.241D Of Avery Campbell MD Office Visit 02/26/2017 9:00a Orthopedic Services Daron Chirinos [address] M25.561 Of Avery Campbell MD Office Visit 01/07/2017 9:20a [facility] [place] [address] M25.561 - Radha M25.50 R53.83 Office Visit 08/04/2016 9:00a [facility] [place] [address] E04.1 Edwards Z13.220 Z13.1 Office Visit 07/04/2015 10:00a [facility] Valerio Garrison Vera, 38864 R00.2 Dutch Russo, [facility] Office Visit 05/22/2015 2:00p [facility] Vera, 23575 786.50 Dutch Russo, [facility], [facility]AS[facility] 785.1 Office Visit 12/25/2014 8:00a [facility] Irwin Rubio M.D. 14266 727.09 C.M.A. 715.96 Office Visit 07/19/2014 3:00p [facility] Of Heath Cm, 72062 355.6 C.M.A. M.D. Office Visit 06/15/2014 2:00p [facility] Cm, 21585 355.6 C.M.A. M.D. Office Visit 01/17/2014 2:30p [facility] Morrison, 38023 794.09 Services Of Dutch Russo 782.0 Office Visit 12/20/2013 3:30p [facility] Morrison, 73335 782.0 Services Of Dutch Russo 794.09 Office Visit 11/29/2013 3:00p [facility] Callie Perry, N.P. 48679 461.9 - Edwards Office Visit 11/21/2013 11:20a [facility] Callie Perry, N.P. 45607 461.9 - Edwards Office Visit 10/04/2013 4:00p [facility] Callie Perry, N.P. 51959 599.70 - Edwards 791.0 724.5 Office Visit 08/23/2013 1:20p [facility] Callie Perry, N.P. 74560 719.49 - Edwards 789.03 728.87 Office Visit 09/06/2012 11:20a [facility] Callie Perry, N.P. 45772 530.81 - Edwards Office Visit 05/07/2012 1:40p [facility] Nery Wright M.D. 83474 784.0 - Edwards Office Visit 04/09/2012 3:00p [facility] Callie Varn, N.P. 46350 726.32 - Edwards 354.0 719.47 244.9 Office Visit 01/13/2012 2:00p Neuro[facility] Services Yosi Crooks, 72871 723.0 Of Dutch Russo Office Visit 10/29/2011 2:00p [facility] - Callie Varn, 14922 337.00 Edwards N.P. Office Visit 06/11/2011 11:40a DO Not Use Callie Varn, 81106 723.1 Records Management Manager-Edwards N.P. Office Visit 03/24/2011 3:00p DO Not Use Callie Varn, 28443 300.00 Records Management Manager-Edwards N.P. 780.93 Office Visit 12/30/2010 11:00a DO Not Use Callie Varn, 79715 789.03 Records Management Manager-Edwards N.P. Office Visit 07/31/2010 10:15a DO Not Use Pallavi Cordova M.D., 49530 729.5 Records Management Manager-Edwards FACP 726.31 Office Visit 04/17/2010 10:15a DO Not Use Callie Varn, 60293 V72.31 Records Management Manager-Edwards N.P. v72.31 V06.1 v06.1 Office Visit 11/13/2009 11:30a DO Not Use Callie Varn, 51067 789.07 Records Management Manager-[facility]wards N.P. Office Visit 10/31/2009 8:45a DO Not Use Callie Varn, 14859 240.9 Records Management Manager-Edwards N.P. 241.9 Office Visit 10/17/2009 3:15p DO Not Use Callie Varn, 85827 240.9 Records Management Manager-Edwards N.P. Office Visit 09/13/2009 4:00p DO Not Use Pallavi Cordova M.D., 32787 786.2 Records Management Manager-Edwards FACP Office Visit 08/24/2009 4:00p DO Not Use Pallavi Cordova M.D., 87740 786.50 Records Management Manager-Edwards FACP 786.2 Office Visit 03/16/2009 2:15p DO Not Use Callie Varn, 14651 599.0 Records Management Manager-Edwards N.P. Office Visit 03/01/2009 1:15p DO Not Use Pallavi Cordova M.D., 48586 599.0 Records Management Manager-Edwards FACP Office Visit 01/03/2009 1:00p DO Not Use Pallavi Cordova M.D., 46763 300.00 Records Management Manager-[facility]wards FACP Office Visit 11/09/2008 1:30p DO Not Use Pallavi Cordova M.D., 76743 272.4 Records Management Manager-Edwards FACP V62.82 Office Visit 10/06/2008 3:00p DO Not Use Records Management Manager-[facility]wards Pallavi Cordova 03333 V72.31 MRicardo, FACP 780.79 272.0 785.1 Plan of Care 07/09/2018 - Jeremie Mendez, MDM77.41 Metatarsalgia, right footNew Therapy: Physical TherapyFollow up:Follow Up: As ebvirbF26.42 Metatarsalgia, left footM67.01 Short Achilles tendon (acquired), right dmbxiU87.02 Short Achilles tendon (acquired), left ankle
[2018-07-12 15:00] VITALS: BP 142/82
--- NOTE | 2018-07-12 15:59 | UC ---
Neck Pain HPI - HPI Summary HPI Summary: 63 year old woman comes in to clinic today with a chief complaint of neck pain. Yesterday she was shoveling stone in the neck pain started mildly at that time. Overnight the pain worse when she woke up this morning it was severe. It 's cervical spine the lower aspect. It radiates towards the right shoulder. There is no weakness or numbness. Movement makes the pain worse. Stay in one position decreases the pain. She's had a history of neck problems in the past to include cervical disc problems. She has not taken any medications for the pain. 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 Pain Intensity: 10 - Allergies/Home Medications Allergies/Adverse Reactions: Allergies Allergy/AdvReac Type Severity Reaction Status Date / Time ciprofloxacin [From Cipro] Allergy Severe Muscle Ache Verified 07/12/18 15:02 Iodinated Contrast- Oral and Allergy Severe Anaphylatic Verified 07/12/18 15:02 IV Dye Shock soybean Allergy Severe Anaphylatic Verified 07/12/18 15:02 Shock strawberry Allergy Severe Anaphylatic Verified 07/12/18 15:02 Shock codeine Allergy Intermediate Itching Verified 07/12/18 15:02 NSAIDS (Non-Steroidal AdvReac Severe See Comment Verified 07/12/18 15:02 Anti-Inflamma Yeast AdvReac Severe See Comment Verified 07/12/18 15:02 black pepper AdvReac Severe sinusitis Uncoded 07/12/18 15:02 dairy AdvReac Severe sinus Uncoded 07/12/18 15:02 infections malt AdvReac Severe See Comment Uncoded 07/12/18 15:02 PMH/Surg Hx/FS Hx/Imm Hx Other Neurological History: cervical disc rupture - Surgical History Surgical History: Yes Surgery Procedure, Year, and Place: Appendectomy, Jaw/TMJ - surgery 1992, Right Foot surgery 1988 - Family History Known Family History: Positive: Unknown, Hypertension Negative: Respiratory Disease, Seizure Disorder - Social History Alcohol Use: None Substance Use Type: None Smoking Status (MU): Never Smoked Tobacco - Immunization History Most Recent Influenza Vaccination: never Most Recent Tetanus Shot: less then 10 yrs. Most Recent Pneumonia Vaccination: never Review Of Systems Constitutional: Positive: Negative Skin: Positive: Negative Eyes: Positive: Negative ENT: Positive: Negative Respiratory: Positive: Negative Cardiovascular: Positive: Negative Gastrointestinal: Positive: Negative Musculoskeletal: Positive: Other: - see hpi Neurological: Positive: Negative Psychological: Positive: Negative All Other Systems Reviewed And Are Negative: Yes Physical Exam Triage Information Reviewed: Yes Appearance: Well-Appearing, Well-Nourished, Pain Distress - mild, worse with head movement Vital Signs: Initial Vital Signs Temp 98.3 F 07/12/18 14:55 Pulse 83 07/12/18 14:55 Resp 16 07/12/18 14:55 BP 142/82 07/12/18 14:55 Pulse Ox 98 07/12/18 14:55 Vital Signs Reviewed: Yes Eye Exam: Normal Eyes: Positive: Conjunctiva Clear Neck: Positive: Other: - Neck is tender to palpation of the midline in the lower neck. It is also tender to the right side through the trapezius muscle. It feels like there is some muscle spasm. Respiratory: Positive: No respiratory distress Musculoskeletal: Positive: Strength Intact, Other: - Pain with range of motion of the neck and the range of motion is decreased secondary to pain. Neurological: Positive: Alert, Muscle Tone Normal Psychological Exam: Normal Psychological: Positive: Age Appropriate Behavior Skin Exam: Normal Neck Pain Course/Dx - Course Course Of Treatment: At this time the patient has no neurologic deficits. She tells me that she's had multiple CT scans and her primary care doctor recommended no more CT scans unless it is emergent. Without a neurologic deficits imaging is not crucial at this stage. Patient is unable to take nonsteroidal anti-inflammatories. Opiates make her throw up. Overall the plan is to take acetaminophen as directed as needed. Patient plans to see her primary care doctor on July 14, 2018. I let her know if she had of a neurologic deficit she she needed immediate reevaluation. - Differential Dx/Diagnosis Provider Diagnoses: NECK PAIN Discharge - Sign-Out/Discharge Documenting (check all that apply): Patient Departure All imaging exams completed and their final reports reviewed: No Studies - Discharge Plan Condition: Stable Disposition: HOME Patient Education Materials: Acute Neck Pain (ED) Referrals: Yinka Orozco NP [Primary Care Provider] - Additional Instructions: FOLLOW UP WITH YOUR DOCTOR ON 07/14/18. GET RECHECKED FOR ANY WORSENING OF YOUR CONDITION; WEAKNESS, NUMBNESS, PAIN OR QUESTIONS OR CONCERNS. - Billing Disposition and Condition Condition: STABLE Disposition: Home
== END 2018-07-12 16:15 | disposition home or self-care (01) ==
LOC: UCEAST 14:42
DX: M54.2 Cervicalgia (principal); Z88.5 Allergy status to narcotic agent; Z88.6 Allergy status to analgesic agent; Z88.1 Allergy status to other antibiotic agents; Z91.041 Radiographic dye allergy status
CPT/HCPCS: 99211; G0463

== ENCOUNTER 2019-02-08 12:07 | Emergency (ER) | payer OTHER ==
--- OUTSIDE RECORDS SUMMARY | 2019-02-08 12:13 | XMS REPORT | Continuity of Care Document ---
:1955 External Reference #:[id number] Author Name Michelle De Paz PA-C Address [address] [place] [address] [place] [address] Care Team Providers Name Role Phone Sofi Benz FNP Care Team Information Md Urologist Unavailable Ori Grace MD Primary Care Physician Unavailable Payers Date Identification Numbers Payment Provider Subscriber Policy Number: [id number] [facility] Kristine Shah PayID: [id number] [place] [address] Problems Active Problems Provider Date Generalized abdominal pain Michelle De Paz PA-C Onset: 01/20/2019 Diarrhea Michelle De Paz PA-C Onset: 01/20/2019 Flatulence, eructation and gas pain Michelle De Paz PA-C Onset: 2018 Family History Date Family Member(s) Observation Comments Father Colon Cancer Social History Type Date Description Comments Sex Unknown ETOH Use Denies alcohol use Tobacco Use Start: Unknown Patient has never smoked Smoking Status Reviewed: 01/20/19 Patient has never smoked Allergies, Adverse Reactions, Alerts Active Allergies Reaction Severity Comments Date Codeine 11/16/2015 Cipro 11/16/2015 Iodine 11/16/2015 Vital Signs Date Vital Result Comment 01/20/2019 10:36am Height 67 inches 5'7" Weight 200.00 lb BP Systolic 130 mmHg BP Diastolic 71 mmHg Heart Rate 72 /min BMI (Body Mass Index) 31.3 kg/m2 11/16/2015 8:10am Height 67 inches 5'7" Weight 198.00 lb BP Systolic 139 mmHg BP Diastolic 73 mmHg Heart Rate 80 /min BMI (Body Mass Index) 31.0 kg/m2 Results Test Date Facility Test Result H/L Range Note Laboratory test 01/25/2019 [facility] O&P Ova & SEE RESULT 1, 2 finding Parasites Screen BELOW 1 [id number] 2 SEE RESULT BELOW Name: KRISTINE SHAH : [address]: Michelle FRANCO Acct: [id number] Unit: [id number] AGE: 63 Location: [facility] Re01/25/19 SEX: F Status: REG REF SPEC: [id number] ISREAL: 01/25/[address]: Michelle FRANCO REQ: [id number] RECD: 01/25/19 STATUS: COMP _ SOURCE: STOOL SPDESC: ORDERED: O P: Griffin/Marycruz COMMENTS: [id number] Procedure Result Reported Site O P: Giardia/Cryptospor Screen Final 01/26/19- 1117 ML Organism 1 Neg Cryptosporidium/Giardia Giardia and cryptosporidium antigen testing performed by enzyme immunoassay. If patient is immunocompromised or has traveled to or is from a developing country, a full ova and parasite exam with microscopic (OPMIC) is recommended. All samples will be held 21 days in case full ova and parasite testing is requested. Contact the Microbiology Department at [phone]. TEST LIMITATIONS: As with all diagnostic procedures, the results obtained should be used in conjunction with other clinical information available the physician, including confirmation by another method. Negative results can occur in samples containing antigen below lower limits of detection of the assay. One negative specimen does not rule out the possibility of a parasitic infection. To improve detection it is recommended that three specimens be collected on separate days over a period of not more than seven days. The use of colonic washes, aspirates or other diluted sample types has not been established and could affect the performance of the assay. Stool samples contaminated with an oily or particulate base (eg. Barium, mineral oil etc.) could interfere with the test and are not recommended. CONTINUED ON NEXT PAGE DEPARTMENT OF PATHOLOGY, [address] [place] [address] Kamlesh Stark M.D. Director [facility] # [id number] Patient: KRISTINE SHAH [id number] (Continued) Specimen: [id number] Collected: 01/25/19 Received: 01/25/19-1315 (Continued) Procedure Result Reported Site O P: Giardia/Cryptospor Screen Final (continued) 01/26/19- 8797 * ML - Main Lab . END OF REPORT DEPARTMENT OF PATHOLOGY, [address] [place] [address] Kamlesh Stark M.D. 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
--- NOTE | 2019-02-08 13:13 | UC ---
Abdominal Pain Female HPI - HPI Summary HPI Summary: 63-year-old female presents with sudden onset of right lower quadrant pain yesterday around noon. She describes the pain as being constant and a pain level of 4-6. States pain intensifies to a level of 8 or 9 any type she attempts to sit or bend over. Pain radiates straight through to her right lower back. Associated with some mild nausea. Has chronic diarrhea and states her bowel movements are unchanged. Last bowel movement this morning. Has history of kidney stones but states this pain is very different from her previous episodes. Appendectomy in 2007. Denies fever, chills, vomiting, constipation, blood in stool, melena, dysuria, frequency, urgency, hematuria, vaginal discharge, or abnormal bleeding. 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 Pain Intensity: 10 Allergies/Adverse Reactions: Allergies Allergy/AdvReac Type Severity Reaction Status Date / Time ciprofloxacin [From Cipro] Allergy Severe Muscle Ache Verified 02/08/19 12:26 Iodinated Contrast- Oral and Allergy Severe Anaphylatic Verified 02/08/19 12:26 IV Dye Shock soybean Allergy Severe Anaphylatic Verified 02/08/19 12:26 Shock strawberry Allergy Severe Anaphylatic Verified 02/08/19 12:26 Shock codeine Allergy Intermediate Itching Verified 02/08/19 12:26 NSAIDS (Non-Steroidal AdvReac Severe See Comment Verified 02/08/19 12:26 Anti-Inflamma Yeast AdvReac Severe See Comment Verified 02/08/19 12:26 black pepper AdvReac Severe sinusitis Uncoded 02/08/19 12:26 dairy AdvReac Severe sinus Uncoded 02/08/19 12:26 infections malt AdvReac Severe See Comment Uncoded 02/08/19 12:26 PMH/Surg Hx/FS Hx/Imm Hx Previously Healthy: Yes - Denies significant PMH - Surgical History Surgical History: Yes Surgery Procedure, Year, and Place: Appendectomy, Jaw/TMJ - surgery 1992, Right Foot surgery 1988. APPY 2007 - Family History Known Family History: Positive: Hypertension, Other - Mother - uterine cancer, aunt - ovarian cancer - Social History Occupation: Retired Lives: With Family Alcohol Use: None Substance Use Type: None Smoking Status (MU): Never Smoked Tobacco - Immunization History Most Recent Influenza Vaccination: never Most Recent Tetanus Shot: less then 10 yrs. Most Recent Pneumonia Vaccination: never Review of Systems All Other Systems Reviewed And Are Negative: Yes Constitutional: Negative: Fever, Chills Skin: Negative: Rash Respiratory: Positive: Negative Cardiovascular: Positive: Negative Gastrointestinal: Positive: Abdominal Pain, Diarrhea - Chronic, Nausea. Negative: Vomiting Genitourinary: Negative: Dysuria, Hematuria, Frequency, Urgency, Vaginal/Penile Burning, Vaginal/Penile Itching, Vaginal/Penile Discharge, Abnormal Bleeding Musculoskeletal: Positive: Negative Neurological: Positive: Negative Is Patient Immunocompromised?: No Physical Exam - Summary Physical Exam Summary: GENERAL APPEARANCE: Well developed, well nourished, alert and cooperative. Patient appears comfortable while standing but grimaces and holds her RLQ with any attempt to sit or bend over. CARDIAC: Normal S1 and S2. No S3, S4 or murmurs. Rhythm is regular. There is no peripheral edema, cyanosis or pallor. Extremities are warm and well perfused. Capillary refill is less than 2 seconds. Peripheral pulses intact. LUNGS: Clear to auscultation without rales, rhonchi, wheezing or diminished breath sounds. ABDOMEN: Positive bowel sounds. Soft, nondistended. Tenderness to the RLQ without guarding or rebound. No masses or hepatosplenomegally. No CVA tenderness. MUSKULOSKELETAL: ROM intact to all extremities. No joint erythema or tenderness. Normal muscular development. Normal gait. SKIN: Skin normal color, texture and turgor with no lesions or eruptions. Triage Information Reviewed: Yes Vital Signs: Initial Vital Signs Temp 98 F 02/08/19 12:20 Pulse 78 02/08/19 12:20 Resp 18 02/08/19 12:20 BP 137/88 02/08/19 12:20 Pulse Ox 99 02/08/19 12:20 Vital Signs Reviewed: Yes Diagnostics - Radiology No standard instances Radiology Interpretation Completed By: Radiologist Summary of Radiographic Findings: Order Information: US TRANSVAGINAL. Accession Number: [id number]. CPT: 17907. HISTORY: RLQ pain. COMPARISONS: September 02, 2013. TECHNIQUE: Multiple transverse and longitudinal ultrasound images were obtained of the. pelvis using grayscale, color Doppler, and spectral Doppler imaging using the endovaginal transducer. FINDINGS: UTERUS: The uterus measures 5.7 x 2.3 x 3.2 cm. Cervical nabothian cysts are noted. ENDOMETRIUM: The endometrial stripe is smooth. The endometrium measures 0.4 cm in thickness. There is thickening of the mucosa of the endocervical canal. CUL- DE-SAC: There is no free fluid within the cul-de-sac. RIGHT OVARY: The right ovary measures 1.5 x 0.6 x 1.2 cm. Maximally flow. LEFT OVARY: The left ovary measures 1.1 x 0.9 x 1.2 cm. There is a 0.6 cm simple left ovarian cyst. Normal arterial and venous waveforms are identifiable within the ovary on spectral Doppler imaging. BLADDER: The bladder is not well visualized. OTHER: None. IMPRESSION: 1. NO SONOGRAPHIC FEATURES OF TORSION. PLEASE NOTE THAT PARTIAL OR INTERMITTENT TORSION MAY BE SONOGRAPHICALLY NORMAL. 2. THICKENING OF THE MUCOSA OF THE ENDOCERVICAL CANAL. Abd Pain Female Course/Dx - Course Course Of Treatment: 63-year-old female presents with sudden onset of right lower quadrant pain yesterday around noon. She describes the pain as being constant and a pain level of 4-6. States pain intensifies to a level of 8 or 9 any type she attempts to sit or bend over. Pain radiates straight through to her right lower back. Associated with some mild nausea. Has chronic diarrhea and states her bowel movements are unchanged. Last bowel movement this morning. Has history of kidney stones but states this pain is very different from her previous episodes. Appendectomy in 2007. Denies fever, chills, vomiting, constipation, blood in stool, melena, dysuria, frequency, urgency, hematuria, vaginal discharge, or abnormal bleeding. Afebrile. Vital signs stable. She had a soft, nondistended abdomen with right lower quadrant tenderness without rebound or guarding. Patient was noted to be grimacing and holding her right lower quadrant with any attempts to sit or bend over. I discussed with the patient concerns regarding the severity of her pain and possibilities for further evaluation including ultrasound, CT scan, and ED evaluation. Patient states that she has had multiple CT scans in the past and has been advised to avoid this and would like to proceed with an ultrasound at this time. I did explain to her the limitations of this study and that she may still require further evaluation. Ultrasound showed thickening of the mucosa of the endocervical canal, a 0.6 cm simple left ovarian cyst, but no evidence of mass or ovarian torsion. These findings were reviewed with the patient. I did discuss with her that the possibility still remained of a partial or intermittent ovarian torsion and because of the limitations of the ultrasound I also cannot rule out other causes of her pain such as partial or complete bowel obstruction, bowel infarction, or other pathology that may require CT scanning. We discussed that that further evaluation of her pain would require evaluation in the emergency room however patient prefers to take a watchful waiting approach at this time and will go to the emergency room should her symptoms worsen. Patient declines a prescription for pain medication as she states she prefers to take a natural approach. She is to follow-up with her primary care provider within 3 days if symptoms do not improve. I also provided her with a referral to STAFF ASSISTANT for further evaluation of the thickening of her endometrium. Anticipatory guidance and warning symptoms are reviewed with the patient. Verbalizes understanding and agrees with plan of care. - Differential Dx/Diagnosis Differential Diagnosis: Bowel Obstruction, Constipation, Renal Colic, Urinary Tract Infection Provider Diagnosis: RLQ abdominal pain Discharge - Sign-Out/Discharge Documenting (check all that apply): Patient Departure All imaging exams completed and their final reports reviewed: Yes - Discharge Plan Condition: Stable Disposition: HOME Patient Education Materials: Acute Abdominal Pain (ED) Referrals: Yinka Orozco NP [Primary Care Provider] - 3 Days Kevin Wheeler MD [Medical Doctor] - As Soon As Possible Additional Instructions: The US performed in the clinic today showed no findings that would explain your current abdominal pain. There is still a chance that the pain could be caused by a partial or intermittent twisting of the ovary as this may not show up on an ultrasound. There was a small cyst on the left ovary. There was also some thickening of the endometrium noted on the ultrasound. While I think this is unrelated to your current pain it is recommended that you have this further evaluated by a plan rep. The urine test performed in the clinic was normal. Follow up with your primary care provider within 3 days if symptoms are not improving. Seek immediate medical attention in the emergency room if you develop fever greater than 100.5 F, have worsening abdominal pain, persistent or projectile vomiting, blood in your stool, dark black stool, weakness or dizziness, or any worsening of symptoms. - Billing Disposition and Condition Condition: STABLE Disposition: Home
[2019-02-08 14:51] VITALS: BP 148/80
== END 2019-02-08 15:08 | disposition home or self-care (01) ==
LOC: UCEAST 12:07
DX: R10.31 Right lower quadrant pain (principal); R11.0 Nausea; R19.7 Diarrhea, unspecified; Z87.442 Personal history of urinary calculi; Z90.89 Acquired absence of other organs; Z88.6 Allergy status to analgesic agent; Z88.1 Allergy status to other antibiotic agents; Z91.041 Radiographic dye allergy status; Z91.011 Allergy to milk products; Z88.5 Allergy status to narcotic agent; Z91.018 Allergy to other foods
CPT/HCPCS: 76830; 81003; 99211; G0463

== ENCOUNTER 2019-09-10 08:50 | Emergency (ER) | payer MEDICAID, MEDICARE, OTHER ==
[2019-09-10 09:09] VITALS: BP 121/77
--- NOTE | 2019-09-10 09:12 | UC ---
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 Onset/Duration: Gradual Onset, Lasting Weeks - 1, Still Present Severity Initially: Mild Severity Currently: Mild Character: Dull Aggravating Factor(s): Nothing Alleviating Factor(s): Position Associated Signs And Symptoms: Positive: Back Pain, Nausea - slight - Allergies/Home Medications Allergies/Adverse Reactions: Allergies Allergy/AdvReac Type Severity Reaction Status Date / Time ciprofloxacin [From Cipro] Allergy Severe Muscle Ache Verified 09/10/19 09:09 Iodinated Contrast Media Allergy Severe Anaphylatic Verified 09/10/19 09:09 [Iodinated Contrast- Oral Shock and IV Dye] soybean Allergy Severe Anaphylatic Verified 09/10/19 09:09 Shock strawberry Allergy Severe Anaphylatic Verified 09/10/19 09:09 Shock codeine Allergy Intermediate Itching Verified 09/10/19 09:09 NSAIDS (Non-Steroidal AdvReac Severe See Comment Verified 09/10/19 09:09 Anti-Inflamma Yeast AdvReac Severe See Comment Verified 09/10/19 09:09 black pepper AdvReac Severe sinusitis Uncoded 09/10/19 09:09 dairy AdvReac Severe sinus Uncoded 09/10/19 09:09 infections malt AdvReac Severe See Comment Uncoded 09/10/19 09:09 Home Medications: Home Medications EPINEPHrine [Epipen] 09/10/19 [History] Homeopathic Urinary Relief 1 tab PO ONCE PRN 09/10/19 [History Confirmed ] PMH/Surg Hx/FS Hx/Imm Hx Previously Healthy: No GI/ History: Kidney Stones Neurological History: Other - MS - Surgical History Surgical History: Yes Surgery Procedure, Year, and Place: Appendectomy, Jaw/TMJ - surgery 1992, Right Foot surgery 1988. APPY 2007 - Family History Known Family History: Positive: Hypertension, Other - Mother - uterine cancer, aunt - ovarian cancer Negative: Respiratory Disease, Seizure Disorder - Social History Occupation: Retired Lives: With Family Alcohol Use: None Substance Use Type: None Smoking Status (MU): Never Smoked Tobacco - Immunization History Most Recent Influenza Vaccination: never Most Recent Tetanus Shot: less then 10 yrs. Most Recent Pneumonia Vaccination: never Review of Systems All Other Systems Reviewed And Are Negative: Yes Constitutional: Positive: Negative Skin: Positive: Negative Eyes: Positive: Negative ENT: Positive: Negative Respiratory: Positive: Negative Cardiovascular: Positive: Negative Genitourinary: Positive: Dysuria, Other Motor: Positive: Negative Neurovascular: Positive: Negative Musculoskeletal: Positive: Negative Neurological: Positive: Negative Psychological: Positive: Negative Is Patient Immunocompromised?: No Physical Exam Triage Information Reviewed: Yes Appearance: Well-Appearing, No Pain Distress, Well-Nourished Vital Signs Reviewed: Yes Eye Exam: Normal Eyes: Positive: Conjunctiva Clear ENT Exam: Normal ENT: Positive: Normal ENT inspection, Hearing grossly normal. Negative: Trismus , Muffled voice, Hoarse voice Neck exam: Normal Neck: Positive: Supple, Nontender Respiratory Exam: Normal Respiratory: Positive: Chest non-tender, No respiratory distress, No accessory muscle use Cardiovascular Exam: Normal Cardiovascular: Positive: RRR, Pulses Normal, Brisk Capillary Refill Abdomen Description: Positive: CVA Tenderness (L). Negative: Distended, Guarding Musculoskeletal Exam: Normal Musculoskeletal: Positive: Strength Intact, ROM Intact, No Edema Neurological Exam: Normal Neurological: Positive: Alert, Muscle Tone Normal Psychological Exam: Normal Skin Exam: Normal Diagnostics - Laboratory Lab Results: trace intact blood in ua Complaint Female Dx - Course Course Of Treatment: reviewed ua results with patient offer patient to go to ED for evaluation of flank pain/renal colic (potentially) she refused stating she will increase fluids and follow with pcp on Thursday she is agreeable and understands the need if symptoms worsen, develop fever, vomiting to go to ED- - Differential Dx/Diagnosis Provider Diagnosis: Dysuria, Hematuria, History of kidney stones Discharge ED - Sign-Out/Discharge Documenting (check all that apply): Patient Departure All imaging exams completed and their final reports reviewed: No Studies - Discharge Plan Condition: Stable Disposition: HOME Patient Education Materials: Hematuria (ED), Flank Pain (ED) Referrals: Yinka Orozco, [employer] [Primary Care Provider] - 2 Days Additional Instructions: Go directly to the emergency department if symptoms worsen in any way - Billing Disposition and Condition Condition: STABLE Disposition: Home - Attestation Statements Provider Attestation: I was available for consult. This patient was seen by the JEANIE. The patient was not presented to, seen by, or examined by me. -Satnam
== END 2019-09-10 09:42 | disposition home or self-care (01) ==
LOC: UCEAST 08:50
DX: R30.0 Dysuria (principal); R31.9 Hematuria, unspecified; G35 Multiple sclerosis; Z87.442 Personal history of urinary calculi; Z88.1 Allergy status to other antibiotic agents; Z91.041 Radiographic dye allergy status; Z91.018 Allergy to other foods; Z88.5 Allergy status to narcotic agent; Z88.6 Allergy status to analgesic agent; Z91.011 Allergy to milk products
CPT/HCPCS: 81003; 87086; 99211; G0463

== ENCOUNTER 2019-11-01 07:39 | Emergency (ER) | payer MEDICARE, OTHER ==
[2019-11-01 07:53] VITALS: BP 115/63
[2019-11-01] MEDS ORDERED: Albuterol 2.5 MG/3 ML NEB.SOL* (0.083%) INH ONE (08:25)
--- NOTE | 2019-11-01 08:31 | UC ---
General HPI - HPI Summary HPI Summary: 4 days ago began with cough, congestion, N/V and decrease PO. Her son was diagnosed with flu b a day prior to her symtoms. She is so nauseated all the time and hardly can keep anything down. She is using her son's anti-nausea meds and he finally told her to go get her own. she took zofran just prior to arrival and has been able to keep down half a water bottle thus far. Significant cough - has used a nebulizer in the past. States her insurance won' t cover an inhaler but she can get a nebulizer covered. 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 Pain Intensity: 6 - Allergy/Home Medications Allergies/Adverse Reactions: Allergies Allergy/AdvReac Type Severity Reaction Status Date / Time ciprofloxacin [From Cipro] Allergy Severe Muscle Ache Verified 11/01/19 07:53 Iodinated Contrast Media Allergy Severe Anaphylatic Verified 11/01/19 07:53 [Iodinated Contrast- Oral Shock and IV Dye] soybean Allergy Severe Anaphylatic Verified 11/01/19 07:53 Shock strawberry Allergy Severe Anaphylatic Verified 11/01/19 07:53 Shock codeine Allergy Intermediate Itching Verified 11/01/19 07:53 NSAIDS (Non-Steroidal AdvReac Severe See Comment Verified 11/01/19 07:53 Anti-Inflamma Yeast AdvReac Severe See Comment Verified 11/01/19 07:53 black pepper AdvReac Severe sinusitis Uncoded 11/01/19 07:53 dairy AdvReac Severe sinus Uncoded 11/01/19 07:53 infections malt AdvReac Severe See Comment Uncoded 11/01/19 07:53 Home Medications: Home Medications Albuterol 2.5MG/3ML (0.083%)* [Ventolin 2.5 MG/3 ML NEB.NAVEED*] 2.5 mg INH Q4H #1 applic 11/01/19 [Rx] Ondansetron ODT TAB* [Zofran 4 MG Odt TAB*] 4 mg PO Q8H PRN #20 tab.odt [Rx] PMH/Surg Hx/FS Hx/Imm Hx Previously Healthy: Yes - Surgical History Surgical History: Yes Surgery Procedure, Year, and Place: Appendectomy, Jaw/TMJ - surgery 1992, Right Foot surgery 1988. APPY 2007 - Family History Known Family History: Positive: Hypertension, Other - Mother - uterine cancer, aunt - ovarian cancer Negative: Respiratory Disease, Seizure Disorder - Social History Alcohol Use: None Substance Use Type: None Smoking Status (MU): Never Smoked Tobacco - Immunization History Most Recent Influenza Vaccination: never Most Recent Tetanus Shot: less then 10 yrs. Most Recent Pneumonia Vaccination: never Review of Systems All Other Systems Reviewed And Are Negative: Yes Constitutional: Positive: Chills ENT: Positive: Sore Throat, Nasal Discharge Respiratory: Positive: Cough Gastrointestinal: Positive: Vomiting, Nausea Physical Exam Triage Information Reviewed: Yes Appearance: Other: - mildly ill appearing Vital Signs: Initial Vital Signs Temp 98.7 F 11/01/19 07:47 Pulse 87 11/01/19 07:47 Resp 18 11/01/19 07:47 BP 115/63 11/01/19 07:47 Pulse Ox 96 11/01/19 07:47 ENT: Positive: Pharyngeal erythema, Nasal congestion, Other - b/l tm's clear fluid Neck: Positive: Supple, Nontender Respiratory: Positive: Decreased breath sounds, Other: - b/l rhonchi at the bases Cardiovascular: Positive: RRR, No Murmur Abdomen Description: Positive: Nontender, Soft Diagnostics - Radiology CXR Radiology Interpretation Completed By: Radiologist Summary of Radiographic Findings: No acute cardiopulmonary disease Course/Dx - Course Course Of Treatment: This is a 64 yr old with flu like symptoms, persistent cough and N/V CXR: Negative Flu: B positive Albuterol neb given in urgent care - re-eval clear improved aeration Discussed tamiflu even thought outside the time frame window - hesitant to take anything due to her history of significant allergies Plan Recommend Albuterol nebulizer every 4 hours while sick then change to as needed Zofran - anti-nausea medication as needed as directed Continue to rest, fluids, tylenol and/or ibuprofen as needed for pain/fever If symptoms persist or worsen, recommend follow up with PCP or return to urgent care - Diagnoses Provider Diagnosis: Influenza B, Reactive airway disease Discharge ED - Sign-Out/Discharge Documenting (check all that apply): Patient Departure All imaging exams completed and their final reports reviewed: Yes - Discharge Plan Condition: Fair Disposition: HOME Prescriptions: Albuterol 2.5MG/3ML (0.083%)* [Ventolin 2.5 MG/3 ML NEB.NAVEED*] 2.5 mg INH Q4H #1 applic Ondansetron ODT TAB* [Zofran 4 MG Odt TAB*] 4 mg PO Q8H PRN #20 tab.odt PRN Reason: Nausea Patient Education Materials: Influenza (ED), Reactive Airways Disease (ED) Referrals: Yinka Orozco NP [Primary Care Provider] - Additional Instructions: Recommend Albuterol nebulizer every 4 hours while sick then change to as needed Zofran - anti-nausea medication as needed as directed Continue to rest, fluids, tylenol and/or ibuprofen as needed for pain/fever If symptoms persist or worsen, recommend follow up with PCP or return to urgent care - Billing Disposition and Condition Condition: FAIR Disposition: Home
[2019-11-01 08:39] LABS: Influenza B Molecular POSITIVE (Negative)
== END 2019-11-01 09:10 | disposition home or self-care (01) ==
LOC: UCEAST 07:39
DX: J10.1 Influenza due to other identified influenza virus with other respiratory manifestations (principal); J45.909 Unspecified asthma, uncomplicated; Z91.09 Other allergy status, other than to drugs and biological substances; Z88.1 Allergy status to other antibiotic agents; Z91.018 Allergy to other foods; Z88.5 Allergy status to narcotic agent; Z88.6 Allergy status to analgesic agent; Z91.011 Allergy to milk products
CPT/HCPCS: 71046; 99212; G0463